=== PATIENT | female | born 1965 | race African-American/Black ===

== ENCOUNTER 2016-05-04 15:35 | Inpatient (IN) | payer MEDICAID, OTHER ==
[~2016-05-04] VITALS: Ht 157.5 cm; Wt 119.7 kg
[~2016-05-04 15:35] MED LIST: ALBU.5I INH; ASPI325T PO; CLON.2 PO; CYCL-36 PO; HYDR-3533 PO; LISI40TA PO; NAPR220T95 PO; TAB-TAB PO
[2016-05-04 15:37] VITALS: BP 267/147; PULSE 117; RESP 24; TEMP 98.2; O2SAT 97
[2016-05-04] MEDS ORDERED: cloNIDine HCL 0.1 MG TAB PO ONE (16:15)
[2016-05-04] MEDS ORDERED: SODIUM CHLORIDE 0.9% FLUSH 5 ML FLUSH IVF PRN (16:15)
[2016-05-04] MEDS ORDERED: NITROGLYCERIN 2% OINT 1 GM PACKET TOP ONE (16:15)
[2016-05-04] MEDS ORDERED: ASPIRIN 325 MG TAB PO ONE (16:15)
[2016-05-04] MEDS ORDERED: ALBU6.7H INH (16:18)
[2016-05-04] MEDS ORDERED: ASPI81CH CHEW (16:18)
[2016-05-04] MEDS ORDERED: LISI40TA PO (16:18)
[2016-05-04] MEDS ORDERED: HYDR-3533 PO (16:18)
[2016-05-04] MEDS ORDERED: NAPR220T95 PO (16:18)
[2016-05-04] MEDS ORDERED: CLON0.2T PO (16:18)
--- NOTE | 2016-05-04 16:27 | PD ---
HPI Chief Complaint: Respiratory Symptoms Time Seen by Provider: 16:05 Travel History International Travel<30 days: No Contact w/Intl Traveler<30days: No Traveled to known affect area: No History of Present Illness HPI 51-year-old female presents with chest tightness that is been intermittent over the past couple weeks with over the past couple of days intermittent cough and congestion. She states she has been taking her blood pressure medication like she should but she is due to take her clonidine here at 5 PM. She denies taking an aspirin yet today. She denies prior cardiac testing. She denies other concurrent complaints other than chronic shoulder pain. She states that she is working on setting up a better primary care physician for management of her blood pressure but she still takes clonidine and lisinopril. Quality is tightness. Severity is moderate. She denies specific modifying factors other than movement. PFSH Past Medical History Asthma: Yes Cancer: No Cardiac Catheterization: No Cardiovascular Problems: Yes High Cholesterol: No Diabetes: No Diminished Hearing: No Endocrine: No Genitourinary: No Hypertension: Yes Immune Disorder: No Musculoskeletal: Yes (CBP) Neurologic: No Psychiatric: No Reproductive: No Respiratory: Yes (ASTHMA) Tetanus Vaccination: < 5 Years ?: Unknown : 4 Para: 3 Miscarriage: 1 Past Surgical History Abdominal Surgery: Yes (LYSIS OF ADHESIONS) Section: Yes (X3) Gynecologic Surgery: Yes (C-Cesereans) Social History Alcohol Use: Yes (occ) Tobacco Use: No (QUIT APR 2014) Substance Use: No Allergies-Medications (Allergen,Severity, Reaction): Coded Allergies: No Known Allergies (Verified , 05/04/16) Reported Meds & Prescriptions Reported Meds & Active Scripts Active Reported Aleve (Naproxen Sodium) 220 Mg Tab 220 Mg PO BID PRN Lisinopril 40 Mg Tab 40 Mg PO DAILY Lortab (Hydrocodone-Acetaminophen) 5-325 Mg Tab 1 Tab PO Q6H PRN Aspirin 81 Mg Chew 81 Mg CHEW DAILY Proventil Hfa 6.7 GM Inh (Albuterol Sulfate) 90 Mcg/Act Aer 2 Puff INH Q4-6H PRN Clonidine (Clonidine HCl) 0.2 Mg Tab 0.2 Mg PO BID Review of Systems Except as stated in HPI: all other systems reviewed are Neg Physical Exam Narrative GENERAL: Well-nourished, well-developed patient. SKIN: Warm and dry. HEAD: Normocephalic and atraumatic. EYES: No injection or drainage. ENT: No nasal drainage noted. NECK: Supple, trachea midline. CARDIOVASCULAR: Regular rate and rhythm RESPIRATORY: Breath sounds equal bilaterally. No accessory muscle use. GASTROINTESTINAL: Abdomen soft, non-tender, nondistended. EXTREMITIES: No edema. NEUROLOGICAL: Awake and alert. Motor and sensory grossly within normal limits. Normal speech. Data Data Last Documented VS Vital Signs Date Time Temp Pulse Resp B/P Pulse Ox O2 Delivery O2 Flow Rate FiO2 05/04/16 16:46 98 05/04/16 16:39 107 22 197/162 05/04/16 15:37 98.2 Room Air Orders Electrocardiogram (05/04/16 16:14) B-Type Natriuretic Peptide (05/04/16 16:14) Ckmb (Isoenzyme) Profile (05/04/16 16:14) Complete Blood Count With Diff (05/04/16 16:14) Comprehensive Metabolic Panel (05/04/16 16:14) Magnesium (Mg) (05/04/16 16:14) Prothrombin Time / Inr (Pt) (05/04/16 16:14) Act Partial Throm Time (Ptt) (05/04/16 16:14) Troponin I (05/04/16 16:14) Chest, Single Ap (05/04/16 16:14) Ecg Monitoring (05/04/16 16:14) Bilateral Bp Monitoring (05/04/16 16:14) Iv Access Insert/Monitor (05/04/16 16:14) Oximetry (05/04/16 16:14) Aspirin (Aspirin) (05/04/16 16:15) Nitroglycerin 2% Oint (Nitroglycerin 2% (05/04/16 16:15) Sodium Chloride 0.9% Flush (Ns Flush) (05/04/16 16:15) Clonidine (Catapres) (05/04/16 16:15) Influenzae A/B Antigen (05/04/16 16:14) Ed Urine Pregnancytest Poc (05/04/16 17:02) Enalaprilat Inj (Vasotec Inj) (05/04/16 18:00) Admit Order (Ed Use Only) (05/04/16 18:21) Labs Laboratory Tests Test 05/04/16 16:40 White Blood Count 5.7 TH/MM3 Red Blood Count 4.52 MIL/MM3 Hemoglobin 10.4 GM/DL Hematocrit 32.7 % Mean Corpuscular Volume 72.3 FL Mean Corpuscular Hemoglobin 23.1 PG Mean Corpuscular Hemoglobin 31.9 % Concent Red Cell Distribution Width 23.4 % Platelet Count 270 TH/MM3 Mean Platelet Volume 8.6 FL Neutrophils (%) (Auto) 67.3 % Lymphocytes (%) (Auto) 22.2 % Monocytes (%) (Auto) 8.3 % Eosinophils (%) (Auto) 1.5 % Basophils (%) (Auto) 0.7 % Neutrophils # (Auto) 3.9 TH/MM3 Lymphocytes # (Auto) 1.3 TH/MM3 Monocytes # (Auto) 0.5 TH/MM3 Eosinophils # (Auto) 0.1 TH/MM3 Basophils # (Auto) 0.0 TH/MM3 CBC Comment AUTO DIFF Differential Comment AUTO DIFF CONFIRMED Platelet Estimate NORMAL Platelet Morphology Comment NORMAL Prothrombin Time 10.6 SEC Prothromb Time International 1.0 RATIO Ratio Activated Partial 25.7 SEC Thromboplast Time Sodium Level 142 MEQ/L Potassium Level 3.9 MEQ/L Chloride Level 110 MEQ/L Carbon Dioxide Level 24.6 MEQ/L Anion Gap 7 MEQ/L Blood Urea Nitrogen 18 MG/DL Creatinine 1.23 MG/DL Estimat Glomerular Filtration 56 ML/MIN Rate Random Glucose 92 MG/DL Calcium Level 8.5 MG/DL Magnesium Level 2.2 MG/DL Total Bilirubin 0.3 MG/DL Aspartate Amino Transf 14 U/L (AST/SGOT) Alanine Aminotransferase 15 U/L (ALT/SGPT) Alkaline Phosphatase 86 U/L Total Creatine Kinase 86 U/L Troponin I 0.02 NG/ML B-Type Natriuretic Peptide 456 PG/ML Total Protein 7.6 GM/DL Albumin 3.4 GM/DL [facility] Medical Decision Making Medical Screen Exam Complete: Yes Emergency Medical Condition: Yes Medical Record Reviewed: Yes (past history confirmed) Interpretation(s) CBC & BMP Diagram 05/04/16 16:40 Last 24 hours Impressions Chest X-Ray 05/04/16 8868 Signed Impressions: Service Date/Time: Wednesday, May 04, 2016 16:30 - CONCLUSION: No acute disease. No significant change has occurred. Stable left ventricular cardiomegaly Armando Tobin MD EKG without STEMI criteria Differential Diagnosis Hypertensive urgency, musculoskeletal, atypical cardiac, pneumonia, URI.... Narrative Course Will check blood work, chest x-ray, EKG and dose with aspirin, clonidine, nitroglycerin and reevaluate 201/120 at 1750 on recheck, will dose with vasotec and recheck as also takes lisinopril at home 185/98 on recheck before vasotec so will hold and give if goes up again, agrees to admit Physician Communication Physician Communication dr thurston agrees to admit, given patient not needing iv antihypertensive will keep at observation on cardiac tele Diagnosis Primary Impression: Hypertensive urgency Additional Impression: Chest pain Qualified Code: R07.9 - Chest pain, unspecified type Admitting Information Admitting Physician Requests: Observation Christin Hurley MD May 04, 2016 16:27
[2016-05-04 16:39] VITALS: BP 197/162; PULSE 107; RESP 22; O2SAT 99
[2016-05-04 16:46] VITALS: O2SAT 98
--- NOTE | 2016-05-04 16:54 | RADRPT ---
EXAM DATE/TIME: 05/04/2016 16:30 [facility] COMPARISON: CHEST SINGLE AP, June 13, 2014, 11:31. INDICATIONS : Patient is short of breath and chest pain for two weeks. MEDICAL HISTORY : None. SURGICAL HISTORY : None. ENCOUNTER: Initial ACUITY: 1 day PAIN SCORE: 8/10 LOCATION: Bilateral chest FINDINGS: A single view of the chest demonstrates the lungs to be symmetrically aerated without evidence of mas s, infiltrate or effusion. The cardiomediastinal contours reveal stable left ventricular cardiomegal y. Osseous structures are intact. CONCLUSION: No acute disease. No significant change has occurred. Stable left ventricular cardiomegaly Aramndo Tobin MD on May 04, 2016 at 16:51 Board Certified Radiologist. This report was verified electronically.
[2016-05-04 17:16] LABS: AUTOMATED NEUTROPHIL # 3.9 TH/MM3 (1.8-7.7); BASOPHIL % 0.7 % (0.0-2.0); EOSINOPHIL # 0.1 TH/MM3 (0-0.4); EOSINOPHIL % 1.5 % (0.0-4.0); HEMATOCRIT 32.7 % (35.0-46.0); LYMPH % 22.2 % (9.0-44.0); LYMPHOCYTE # 1.3 TH/MM3 (1.0-4.8); MEAN CELL VOLUME 72.3 FL (80.0-100.0); MEAN CORPUSCULAR HEMOGLOBIN 23.1 PG (27.0-34.0); MEAN CORPUSCULAR HGB CONC 31.9 % (32.0-36.0); MONO % 8.3 % (0.0-8.0); NEUT % 67.3 % (16.0-70.0); PLATELET COUNT 270 TH/MM3 (150-450); RED BLOOD COUNT 4.52 MIL/MM3 (4.00-5.30); RED CELL DISTRIBUTION WIDTH 23.4 % (11.6-17.2); WHITE BLOOD COUNT 5.7 TH/MM3 (4.0-11.0)
[2016-05-04 17:22] LABS: HEMO FLAGS AUTO DIFF
[2016-05-04 17:29] LABS: APTT (PATIENT) 25.7 SEC (24.3-30.1); PROTHROMBIN TIME - PATIENT 10.6 SEC (9.8-11.6)
[2016-05-04 17:38] LABS: ANION GAP 7 MEQ/L (5-15); AST (GOT) 14 U/L (15-37); BICARBONATE 24.6 MEQ/L (21.0-32.0); BLOOD UREA NITROGEN 18 MG/DL (7-18); CHLORIDE 110 MEQ/L (98-107); GLOMERULAR FILTRATION RATE 56 ML/MIN (>89); MAGNESIUM 2.2 MG/DL (1.5-2.5); POTASSIUM 3.9 MEQ/L (3.5-5.1); SODIUM (NA) 142 MEQ/L (136-145)
[2016-05-04 17:42] LABS: ALKALINE PHOSPHATASE 86 U/L (45-117); ALT (GPT) 15 U/L (10-53); CREATINE KINASE 86 U/L (26-192); TOTAL BILIRUBIN ADULT 0.3 MG/DL (0.2-1.0)
[2016-05-04 17:58] LABS: PLATELET ESTIMATE SMEAR NORMAL (NORMAL); PLATELET MORPHOLOGY NORMAL (NORMAL); SCAN/DIFF AUTO DIFF CONFIRMED
[2016-05-04] MEDS ORDERED: ENALAPRILAT 1.25 MG/ML VIAL IV PUSH ONE (18:00)
[2016-05-04 18:26] VITALS: BP 172/85; PULSE 99; RESP 22; O2SAT 97
[2016-05-04] MEDS ORDERED: SODIUM CHLORIDE 0.9% FLUSH 5 ML FLUSH FLUSH PRN (19:00)
[2016-05-04 19:15] VITALS: BP_SYST 181; BP_SYST 191; BP_DIAS 101; BP_DIAS 96; PULSE 96; RESP 20; O2SAT 97
[2016-05-04] MEDS ORDERED: cloNIDine HCL 0.2 MG TAB PO SCH (21:00)
[2016-05-04] MEDS: SODIUM CHLORIDE 0.9% FLUSH 5 ML FLUSH FLUSH SCH (21:00)
[2016-05-04 21:04] VITALS: BP 155/89; PULSE 100; RESP 20; O2SAT 97
--- NOTE | 2016-05-04 23:07 | HHI.HP ---
[facility] Primary Care Physician Saeed Patterson MD Admission Diagnosis hypertensive urgency, chest pain Diagnoses: (1) Hypertensive urgency (2) Chest pain (3) Hypochromic microcytic anemia (4) Cephalgia (5) Acute renal insufficiency (6) Menstrual changes Chief Complaint: headache, worsening of chronic left shoulder pain, and sinus congestion worsening shortness of breath Travel History International Travel<30 Days: No Contact w/Intl Traveler <30 Da: No Traveled to Known Affected Are: No History of Present Illness Ms. Wilson is a 51-year-old female with a past medical history of hypertension with medication noncompliance, asthma, and obesity who presented to the emergency room 05/04/2016 for evaluation of chest tightness over the past couple of weeks with some intermittent cough and congestion for a few days. Blood pressure was 267/147 on admission. The patient has a history of medication noncompliance. BNP was mildly elevated at 456 and chest x-ray showed no acute disease with stable left ventricular cardiomegaly. Acute renal insufficiency is noted with BUN at upper limit of normal at 18, creatinine elevated at 1.23 and estimated GFR low at 56 which is somewhat worsened when compared to prior labs during previous visits. CBC is consistent with chronic anemia from prior visits. She is admitted for observation. She is seen in the ER. She states she came in because of headache, worsening of chronic left shoulder pain, and sinus congestion. She also complains of chest tightness, like bricks sitting on it - worse with exertion. She also reports that she has been having worsening shortness of breath. She complains of severe fatigue, PICA with craving ice, muscles that are aching all over, chronic left shoulder pain, and nipple pain. No menses since February; previously had heavy periods with saturation of 5 Maxi pads daily. Review of Systems Constitutional: COMPLAINS OF: Fatigue, Change in appetite (PICA - craves ice) Respiratory: COMPLAINS OF: Cough, Shortness of breath Cardiovascular: COMPLAINS OF: Chest pain (tightness, like bricks sitting on it - worse with exertion), Orthopnea, DENIES: Lower Extremity Edema Gastrointestinal: DENIES: Black stools, Bloody stools Genitourinary: COMPLAINS OF: Abnormal vaginal bleeding (no menses since February 2015, heavy periods prior to this - 5 pads per day), Urinary frequency , DENIES: Dysuria Musculoskeletal: COMPLAINS OF: Joint pain, Muscle aches ("aches all over") Integumentary: DENIES: Breast masses, Breast skin changes, Nipple discharge (c/ o nipple pain) Neurologic: COMPLAINS OF: Headache, DENIES: Seizures Other 10 point system reviewed and other than what is mentioned above and in history of present illness, systems are negative Past Family Social History Past Medical History Hypertension with medication noncompliance Asthma Obesity Chronic back pain Left frozen shoulder x 1 year, see ortho on [facility] in [place] . Past Surgical History 3 C-sections Laparoscopic lysis adhesions . Reported Medications Clonidine Flexeril Lortab . Allergies: Coded Allergies: No Known Allergies (Verified , 05/04/16) Active Ordered Medications Current Medications Aspirin (Aspirin) 325 mg ONCE ONCE PO Last administered on 05/04/16 16:38; Start 05/04/16 at 16:15; Stop 05/04/16 at 16:17; Status DC Nitroglycerin (Nitroglycerin 2% Oint) 1 inch ONCE ONCE TOP Last administered on 05/04/16 16:39; Start 05/04/16 at 16:15; Stop 05/04/16 at 16:17; Status DC IV Flush (NS Flush) 2 ml UNSCH PRN IVF FLUSH AFTER USING IV ACCESS; Start 05/04 at 16:15; Stop 05/04/16 at 20:32; Status DC Clonidine (Catapres) 0.2 mg ONCE ONCE PO Last administered on 05/04/16 16:39 ; Start 05/04/16 at 16:15; Stop 05/04/16 at 16:17; Status DC Enalaprilat (Vasotec Inj) 1.25 mg ONCE ONCE IV PUSH ; Start 05/04/16 at 18:00 ; Stop 05/04/16 at 18:01; Status DC Clonidine (Catapres) 0.2 mg BID PO ; Start 05/04/16 at 21:00 Lisinopril (Prinivil) 40 mg DAILY PO ; Start 1/26/17 at 09:00 IV Flush (NS Flush) 2 ml UNSCH PRN FLUSH FLUSH AFTER USING IV ACCESS; Start at 19:00 IV Flush (NS Flush) 2 ml BID FLUSH ; Start 05/04/16 at 21:00 Enalaprilat (Vasotec Inj) 1.25 mg Q6H PRN IV SEE LABEL COMMENTS; Start at 19:00 Albuterol/ Ipratropium (Duoneb Neb) 1 ampule Q4HR NEB PRN NEB wheezing; Start 05/04/16 at 21:45 . Family History Denies family history of heart disease Diabetes and hypertension runs in the family . Social History Tobacco: Quit smoking April 2014, smoked for years Alcohol: Occasional - twice weekly; about four beers or two cups of hard liquor Illicit Drugs: Denied Performs own ADLs, able to drive, get own groceries . Physical Exam Vital Signs Vital Signs Date Time Temp Pulse Resp B/P Pulse Ox O2 Delivery O2 Flow Rate FiO2 05/04/16 21:04 100 20 155/89 97 Room Air 05/04/16 19:15 96 20 181/96 97 05/04/16 19:15 Room Air 05/04/16 18:26 99 22 172/85 97 05/04/16 16:46 98 05/04/16 16:39 107 22 197/162 99 05/04/16 15:37 98.2 117 24 267/147 97 Room Air Physical Exam GENERAL: This is a well-nourished, well-developed patient, in no apparent distress. SKIN: No rashes, ecchymoses or lesions. Cool and dry. HEAD: Atraumatic. Normocephalic. EYES: No scleral icterus. No injection or drainage. ENT: Nose without bleeding, purulent drainage. NECK: Trachea midline. No JVD or lymphadenopathy. BREASTS: No nipple discharge noted, no masses palpated CARDIOVASCULAR: Regular rate and rhythm without murmurs, gallops, or rubs. RESPIRATORY: Clear to auscultation. Breath sounds diminished but equal bilaterally. No wheezes, rales, or rhonchi. GASTROINTESTINAL: Abdomen soft, non-tender, nondistended. No guarding. MUSCULOSKELETAL: Extremities without clubbing, cyanosis, or edema. No calf tenderness. NEUROLOGICAL: Awake and alert. Motor and sensory grossly within normal limits. Normal speech. . Laboratory Laboratory Tests Test 05/04/16 16:40 White Blood Count 5.7 Red Blood Count 4.52 Hemoglobin 10.4 Hematocrit 32.7 Mean Corpuscular Volume 72.3 Mean Corpuscular Hemoglobin 23.1 Mean Corpuscular Hemoglobin 31.9 Concent Red Cell Distribution Width 23.4 Platelet Count 270 Mean Platelet Volume 8.6 Neutrophils (%) (Auto) 67.3 Lymphocytes (%) (Auto) 22.2 Monocytes (%) (Auto) 8.3 Eosinophils (%) (Auto) 1.5 Basophils (%) (Auto) 0.7 Neutrophils # (Auto) 3.9 Lymphocytes # (Auto) 1.3 Monocytes # (Auto) 0.5 Eosinophils # (Auto) 0.1 Basophils # (Auto) 0.0 CBC Comment AUTO DIFF Differential Comment AUTO DIFF CONFIRMED Platelet Estimate NORMAL Platelet Morphology Comment NORMAL Prothrombin Time 10.6 Prothromb Time International 1.0 Ratio Activated Partial 25.7 Thromboplast Time Sodium Level 142 Potassium Level 3.9 Chloride Level 110 Carbon Dioxide Level 24.6 Anion Gap 7 Blood Urea Nitrogen 18 Creatinine 1.23 Estimat Glomerular Filtration 56 Rate Random Glucose 92 Calcium Level 8.5 Magnesium Level 2.2 Total Bilirubin 0.3 Aspartate Amino Transf 14 (AST/SGOT) Alanine Aminotransferase 15 (ALT/SGPT) Alkaline Phosphatase 86 Total Creatine Kinase 86 Troponin I 0.02 B-Type Natriuretic Peptide 456 Total Protein 7.6 Albumin 3.4 Date/Time Procedure Status Source Growth 05/04/16 16:40 Influenza Types A,B Antigen (SURYA) - Final Complete Nasal Aspirate NEGATIVE FOR FLU A AND B ANTIGEN.... Result Diagram: 05/04/16 1640 05/04/16 1640 Imaging Last Impressions Chest X-Ray 05/04/16 1614 Signed Impressions: Service Date/Time: Wednesday, May 04, 2016 16:30 - CONCLUSION: No acute disease. No significant change has occurred. Stable left ventricular cardiomegaly Armando Tobin MD . Assessment and Plan Problem List: (1) Hypertensive urgency ICD Code: I16.0 Status: Acute (2) Chest pain ICD Code: R07.9 Status: Acute (3) Cephalgia ICD Code: R51 Status: Acute (4) Acute renal insufficiency ICD Code: N28.9 Status: Acute (5) Hypochromic microcytic anemia ICD Code: D50.9 Status: Chronic (6) Menstrual changes ICD Code: N92.6 Status: Acute Assessment and Plan Ms. Wilson is a 51-year-old female with a past medical history of hypertension with medication noncompliance, asthma, and obesity who presented to the emergency room 05/04/2016 for evaluation of chest tightness over the past couple of weeks with some intermittent cough and congestion for a few days. Blood pressure was 267/147 on admission. The patient has a history of medication noncompliance. BNP was mildly elevated at 456 and chest x-ray showed no acute disease with stable left ventricular cardiomegaly. Acute renal insufficiency is noted with BUN at upper limit of normal at 18, creatinine elevated at 1.23 and estimated GFR low at 56 which is somewhat worsened when compared to prior labs during previous visits. CBC is consistent with chronic anemia from prior visits. She is admitted for observation. Hypertensive urgency - Blood pressure 267/147 on admission and is currently 155/89 after treatment - Restart home anti-hypertensive medications: Lisinopril and clonidine - Vasotec 1.25 mg IV every 6 hours when necessary blood pressure greater than or equal to 170/100 - Monitor blood pressure readings and adjust medications as indicated - advised weight loss and alcohol Atypical chest pain - probably secondary to hypertensive urgency may have mild component of CHF - BNP mildly elevated at 456 - Chest x-ray with no acute disease, stable left ventricular cardiomegaly - Serial cardiac enzymes to rule out ACS - Strict intake and output every shift - Cardiac telemetry to monitor for arrhythmias - Vital signs every 4 hours Cephalgia - check CT head Acute renal insufficiency - BUN at upper limit of normal at 18, creatinine elevated at 1.23 and estimated GFR low at 56 - renal function is somewhat worse when compared to prior labs from previous visits - recheck BMP in a.m. and follow trends - avoid nephrotoxins Chronic hypochromic microcytic anemia with PICA - Hemoglobin 10.4, hematocrit 32.2- stable compared to prior labs from previous visits - Recheck CBC in a.m. and follow trends - check iron studies - will need to follow up with PCP for colonoscopy as an outpatient Heavy menses in past with no menstruation since February - check pelvic ultrasound for pelvic mass - check serum HCG - r/o Asthma - Duonebulizers q4h PRN wheezing - Singulair 10 mg daily - consult COPD educator - consider adding preventive inhaler prior to discharge DVT prophylaxis Written by Shira Romero, acting as scribe for Dr. Carr on 05/04/16 at 23:07. The documentation accurately reflects the work performed [id number] by me on at 2307 In addition, patient blood pressure continued to be elevated during the night. She was also having significant pain in her left shoulder which she suffers from frozen shoulder/adhesive capsulitis. She stated she was planned for surgery for this. This pain has been chronic as well. I suspect the patient's pain is not well-controlled. I have educated patient's nurse on this. Pain medicine both dose and frequency have also been increased. We have used clonidine by mouth as the when necessary through the night for her elevated BP since we do not want to lower her blood pressure too fast either. However mainly the blood pressure is also coming from pain. Therefore no IV medications have been added yet such as hydralazine. She was also tachycardic. . Discussed Condition With Patient and ER physician Problem Qualifiers (1) Chest pain: Qualified Code: R07.9 - Chest pain, unspecified type Shira Romero May 04, 2016 23:07 Kevin Carr MD May 05, 2016 08:01
[2016-05-04] MEDS ORDERED: NITROGLYCERIN 0.4 MG SL 25 TABS/BTL SL PRN (23:30)
[2016-05-05] VITALS (17 sets, daily range): BP systolic 147–202; BP diastolic 90–123; PULSE 75–112; RESP 16–22; O2SAT 98–100
[2016-05-05 00:01] LABS: BETA HCG QUANT LESS THAN 1 MIU/ML (0-5)
--- NOTE | 2016-05-05 00:06 | RADRPT ---
EXAM DATE/TIME: 05/04/2016 23:58 [facility] COMPARISON: No previous studies available for comparison. INDICATIONS : Cephalgia. RADIATION DOSE: 52.58 CTDIvol (mGy) MEDICAL HISTORY : Hypertension. SURGICAL HISTORY : None. ENCOUNTER: Initial ACUITY: 1 day PAIN SCALE: 8/10 LOCATION: cranial TECHNIQUE: Multiple contiguous axial images were obtained of the head. Using automated exposure control and adj ustment of the mA and/or kV according to patient size, radiation dose was kept as low as reasonably a chievable to obtain optimal diagnostic quality images. FINDINGS: CEREBRUM: The ventricles are normal for age. No evidence of midline shift, mass lesion, hemorrhage or acute in farction. No extra-axial fluid collections are seen. POSTERIOR FOSSA: The cerebellum and brainstem are intact. The 4th ventricle is midline. The cerebellopontine angle i s unremarkable. EXTRACRANIAL: The visualized portion of the orbits is intact. SKULL: The calvaria is intact. No evidence of skull fracture. CONCLUSION: Normal examination for a patient of this age. Gold Tabares MD on May 05, 2016 at 0:04 Board Certified Radiologist. This report was verified electronically.
[2016-05-05] MEDS ORDERED: cloNIDine HCL 0.1 MG TAB PO ONE (00:45)
[2016-05-05] MEDS: HYDROmorphone HCL PF 1 MG/ML VIAL IV PUSH PRN ×2 (00:54→04:51)
[2016-05-05 01:50] LABS: TRANSFERRIN IRON PROFILE 313 MG/DL (200-360)
[2016-05-05] MEDS: RESP: ALBUTEROL 2.5 MG/IPRATROPIUM 0.5 MG NEB (PRN) NEB ×2 (03:08→19:56)
[2016-05-05 04:50] LABS: BASOPHIL # 0.1 TH/MM3 (0-0.2); BASOPHIL % 1.5 % (0.0-2.0); EOSINOPHIL # 0.2 TH/MM3 (0-0.4); EOSINOPHIL % 3.9 % (0.0-4.0); HEMATOCRIT 31.4 % (35.0-46.0); LYMPH % 25.3 % (9.0-44.0); LYMPHOCYTE # 1.3 TH/MM3 (1.0-4.8); MEAN CELL VOLUME 73.7 FL (80.0-100.0); MEAN CORPUSCULAR HEMOGLOBIN 23.2 PG (27.0-34.0); MEAN CORPUSCULAR HGB CONC 31.6 % (32.0-36.0); MONO % 11.1 % (0.0-8.0); NEUT % 58.2 % (16.0-70.0); PLATELET COUNT 251 TH/MM3 (150-450); RED BLOOD COUNT 4.26 MIL/MM3 (4.00-5.30); RED CELL DISTRIBUTION WIDTH 23.6 % (11.6-17.2); WHITE BLOOD COUNT 5.1 TH/MM3 (4.0-11.0)
[2016-05-05 04:55] LABS: HEMO FLAGS AUTO DIFF
[2016-05-05 05:22] LABS: BICARBONATE 25.2 MEQ/L (21.0-32.0)
[2016-05-05] MEDS ORDERED: cloNIDine HCL 0.1 MG TAB PO PRN (05:30)
[2016-05-05] MEDS: ENALAPRILAT 1.25 MG/ML VIAL IV PRN ×2 (06:38→21:20)
[2016-05-05 07:01] LABS: KERATOCYTES OCC (NORMAL); OVALOCYTES 1+ (NORMAL); PLATELET ESTIMATE SMEAR NORMAL (NORMAL); PLATELET MORPHOLOGY NORMAL (NORMAL); SCAN/DIFF AUTO DIFF CONFIRMED
[2016-05-05] MEDS ORDERED: ACETAMINOPHEN 325 MG TAB PO PRN (08:15)
--- NOTE | 2016-05-05 08:19 | HHI.PR ---
Subjective Remarks Follow up for accelerated hypertension. Agent is currently doing well. Denies any chest pain, shortness of breath, fever or chills. Objective Vitals Vital Signs Date Time Temp Pulse Resp B/P Pulse Ox O2 Delivery O2 Flow Rate FiO2 05/05/16 07:12 188/123 05/05/16 06:39 109 22 202/120 100 Room Air 05/05/16 05:25 104 20 202/115 100 Room Air 05/05/16 04:51 98 20 175/113 98 Room Air 05/05/16 02:19 93 18 195/106 98 Room Air 05/05/16 00:47 100 18 197/111 100 Room Air 05/04/16 21:04 100 20 155/89 97 Room Air 05/04/16 19:15 96 20 181/96 97 05/04/16 19:15 Room Air 05/04/16 18:26 99 22 172/85 97 05/04/16 16:46 98 05/04/16 16:39 107 22 197/162 99 05/04/16 15:37 98.2 117 24 267/147 97 Room Air Result Diagram: 05/05/16 0435 05/05/16 0435 Imaging Last Impressions Pelvis Ultrasound 05/05/16 0000 Signed Impressions: Service Date/Time: April 09:04 - CONCLUSION: The uterus is enlarged by multiple areas of mixed echogenicity within the myometrium consistent with degenerative fibroids. This pattern is similar to that seen on prior CT. Normal evaluation of the ovaries. The endometrium appears thickened within the region of the uterine fundus. Given the patient's history of LMP of February this area may require sampling.. Vi Aguayo MD Chest X-Ray 05/04/16 1614 Signed Impressions: Service Date/Time: Wednesday, May 04, 2016 16:30 - CONCLUSION: No acute disease. No significant change has occurred. Stable left ventricular cardiomegaly Armando Tobin MD Head CT 05/04/16 0000 Signed Impressions: Service Date/Time: Wednesday, May 04, 2016 23:58 - CONCLUSION: Normal examination for a patient of this age. Gold Tabares MD Objective Remarks GENERAL: Alert, oriented 3, NAD. Morbidly obese. SKIN: Warm and dry. HEAD: Normocephalic. EYES: No scleral icterus. No injection or drainage. NECK: Supple, trachea midline. No JVD or lymphadenopathy. CARDIOVASCULAR: Regular rate and rhythm without murmurs, gallops, or rubs. RESPIRATORY: Breath sounds equal bilaterally. No accessory muscle use. GASTROINTESTINAL: Abdomen soft, non-tender, nondistended. MUSCULOSKELETAL: No cyanosis, or edema. BACK: Nontender without obvious deformity. No CVA tenderness. Procedures None A/P Problem List: (1) Accelerated hypertension ICD Code: I10 Status: Acute (2) Chest pain ICD Code: R07.9 Status: Acute (3) Acute renal insufficiency ICD Code: N28.9 Status: Acute (4) Hypochromic microcytic anemia ICD Code: D50.9 Status: Chronic Assessment and Plan Ms. Wilson is a 59-year-old morbidly obese female who presented to the emergency department with accelerated hypertension, headache, atypical chest pain. - Accelerated hypertension - Patient was on clonidine at home. We'll wean her off of clonidine. - Continue lisinopril 40 mg by mouth daily, nifedipine 30 mg by mouth daily, metoprolol 12.5 mg by mouth every 12 hours, hydrochlorothiazide 25 mg by mouth daily. - Bilateral shoulder pain - Continue Flexeril 10 mg every 8 hours when necessary, [place] 7.5 mg/325 mg every 6 hours when necessary. 0.5mg Dilaudid IV for breakthrough. - IV hydralazine 10 mg every 6 hours when necessary for blood pressure over 170/100. - Morbid obesity - possibly contributing to sleep apnea, hypertension. - Consider outpatient sleep study. Full code. SCDs. Problem Qualifiers (1) Chest pain: Qualified Code: R07.9 - Chest pain, unspecified type Aydin Christianson DO May 05, 2016 08:19
[2016-05-05] MEDS ORDERED: HYDROmorphone HCL PF 1 MG/ML VIAL IV PUSH PRN (08:45)
[2016-05-05] MEDS: cloNIDine HCL 0.1 MG TAB PO SCH ×2 (08:50→14:37)
[2016-05-05] MEDS ORDERED: amLODIPine BESYLATE 5 MG TAB PO SCH (09:00)
[2016-05-05] MEDS: SODIUM CHLORIDE 0.9% FLUSH 5 ML FLUSH FLUSH SCH ×2 (09:29→19:46)
[2016-05-05] MEDS: LISINOPRIL 20 MG TAB PO SCH (09:32)
[2016-05-05] MEDS ORDERED: PILL SPLITTER OTHER PRN (11:15)
[2016-05-05] MEDS: NIFEdipine 30 MG SUSTAINED RELEASE TAB PO SCH (12:17)
--- NOTE | 2016-05-05 12:24 | EC ---
Study Study Date:05/05/2016 STUDY CONCLUSIONS SUMMARY - Left ventricle: The cavity size was moderately dilated. Wall thickness was increased in a pattern of moderate LVH. Systolic function was severely reduced by visual assessment. The estimated ejection fraction was in the range of 30% to 35%. Mild diffuse hypokinesis. Doppler parameters are consistent with abnormal left ventricular relaxation (grade 1 diastolic dysfunction). - Aortic valve: Mild to moderate regurgitation. - Aorta: The possibility of dissection is not excluded. Aortic root dimension: 34mm (ED, M-mode). - Aortic root: The aortic root was poorly visualized and normal in size. - Mitral valve: Mild to moderate regurgitation. - Left atrium: The atrium was mildly dilated. - Tricuspid valve: Mild regurgitation. - Pulmonary arteries: PA peak pressure: 31mm Hg (S). - Pericardium, extracardiac: A trivial pericardial effusion was identified circumferential to the heart. If LV function is below 40, please consider prescribing an ACEI or ARB or document rationale for non-use. PROCEDURE DATA STUDY STATUS: Elective. Procedure: Transthoracic echocardiography. Image quality was good. Scanning was performed from the parasternal, apical, and subcostal acoustic windows. Study completion: The patient tolerated the procedure well. Transthoracic echocardiography. M-mode, complete 2D, complete spectral Doppler, and color Doppler. Patient status: Inpatient. CARDIAC ANATOMY LEFT VENTRICLE: The cavity size was moderately dilated. Wall thickness was increased in a pattern of moderate LVH. Systolic function was severely reduced by visual assessment. The estimated ejection fraction was in the range of 30% to 35%. Mild diffuse hypokinesis. Doppler parameters are consistent with abnormal left ventricular relaxation (grade 1 diastolic dysfunction). AORTIC VALVE: Trileaflet; normal thickness leaflets. Doppler: Transvalvular velocity was within the normal range. There was no stenosis. Mild to moderate regurgitation. Aorta: - The possibility of dissection is not excluded. Aortic root: The aortic root was poorly visualized and normal in size. MITRAL VALVE: Structurally normal valve. Doppler: Transvalvular velocity was within the normal range. There was no evidence for stenosis. Mild to moderate regurgitation. LEFT ATRIUM: The atrium was mildly dilated. RIGHT VENTRICLE: The cavity size was normal. Wall thickness was normal. PULMONIC VALVE: Doppler: Transvalvular velocity was within the normal range. There was no evidence for stenosis. No regurgitation. TRICUSPID VALVE: Structurally normal valve. Doppler: Transvalvular velocity was within the normal range. Mild regurgitation. PULMONARY ARTERY: The main pulmonary artery was normal-sized. Systolic pressure was within the normal range. RIGHT ATRIUM: The atrium was normal in size. PERICARDIUM: A trivial pericardial effusion was identified circumferential to the heart. SYSTEMIC VEINS: Inferior vena cava: The vessel was normal in size. BASIC MEASUREMENTS ADULT Normal Left ventricle LV internal dimension, ED, chordal level, *54.1 mm 43-52 PLAX LV internal dimension, ES, chordal level, *42.1 mm 23-38 PLAX Fractional shortening, chordal level, PLAX *22 % >29 LV posterior wall thickness, ED 14.8 mm IVS/LVPW ratio, ED 0.98 <1.3 Ventricular septum Septal thickness, ED 14.5 mm Aortic valve Leaflet separation 20 mm 15-26 Left atrium Anterior-posterior dimension 31 mm BASIC MEASUREMENTS ADULT Normal Aortic valve Leaflet separation 20 mm 15-26 Aorta Root diameter, ED 34 mm 20-37 DOPPLER MEASUREMENTS ADULT Normal Main pulmonary artery Pressure, S *31 mm Hg =30 Mitral valve Maximal regurgitant velocity 476 cm/s Tricuspid valve Regurgitant peak velocity 239 cm/s Peak RV-RA gradient, S 23 mm Hg Maximal regurgitant velocity 239 cm/s Systemic veins Estimated CVP 5 mm Hg Right ventricle RV pressure, S *31 mm Hg <30 LEGEND: Mean values are shown as u=mean value. Asterisk (*) silver values outside specified normal range. Prepared and signed by Abdoul Tapia [id number]
--- NOTE | 2016-05-05 12:37 | MB ---
cc: ALYSSA PEACE DATE OF CONSULTATION: 05/05/2016 1965 REASON FOR CONSULTATION Atypical chest pain. HISTORY OF PRESENT ILLNESS 51-year-old female with past medical history significant for hypertension, noncompliant with medications, asthma and morbid obesity, who presented to the emergency department with complaints of headaches for the last couple of weeks, intermittent cough and congestion. She was found to have a blood pressure 267/ 147, for which she was admitted to the hospital for further management and evaluation. She also reports some chest pain occasional, sometimes at night, they do not happen everyday, not associated with exertion, PND, leg edema, palpitations or shortness of breath. REVIEW OF SYSTEMS Negative except for what is mentioned in the HPI. PAST MEDICAL HISTORY 1. Hypertension. 2. Asthma. 3. Obesity. 4. Chronic back pain. 5. Osteoarthritis in both shoulders. PAST SURGICAL HISTORY 1. . 2. Laparoscopic lysis of adhesions. MEDICATION 1. Albuterol. 2. Aspirin 81. 3. Clonidine 0.2 mg p.o. b.i.d. 4. Hydrocodone. 5. Acetaminophen tablets. 6. Lisinopril 40. 7. Naproxen sodium 220 mg p.o. p.r.n. ALLERGIES NO KNOWN DRUG ALLERGIES. FAMILY HISTORY Noncontributory. SOCIAL HISTORY She is a former smoker. She has occasional alcohol use and she denies illicit drug use. PHYSICAL EXAMINATION VITAL SIGNS: Temperature 97.6, respiratory rate 16, blood pressure on admission 267/147, this morning 194/118. GENERAL: She is awake, alert, oriented x3, in no acute distress. NECK: No JVD, no carotid bruits. HEART: Normal S1-S2. No murmurs, rubs or gallops. LUNGS: Clear to auscultation bilaterally. ABDOMEN: Obese, soft, nontender, nondistended. EXTREMITIES: No cyanosis or edema. Pulses throughout. LABORATORY CBC hemoglobin of 10, hematocrit of 30, platelet count of 251, INR 1. Chemistries sodium 141, potassium 4, BUN 18, creatinine 1.10, troponin's less than 0.02 x3. BNP 456. IMAGING STUDIES Chest x-ray shows no acute cardiopulmonary process. Head CT is normal. EKG Shows sinus tachycardia with nonspecific T-wave abnormalities. ASSESSMENT/PLAN 51-year-old female with above history and findings, presented with headaches in the setting of uncontrolled hypertension. She remains afebrile and hemodynamically stable. Currently she is headache free, as well as chest pain free. She mostly complains of headache, she does not complain of chest discomfort, if anything it is atypical chest pain. At this point I would optimize her blood pressure medications. I will discontinue her Clonidine given her poor noncompliance and the medication profile of rebound hypertension. Consider sleep study for sleep apnea/C-PAP machine. She reports having a lot of issues while sleeping which can be contributing to her high blood pressure. Get 2Dechocardiogram , if abnormal perform MPI. RECOMMENDATIONS 1. Aggressive medical management for hypertension and clonidine should be discontinued and she should be starting a better BP medication regimen for hypertension with beta-blockers, ELVIRA inhibitors, CCB and/or diuretics. 2. Consider sleep study for sleep apnea/CPAP trial. 3. Aggressive therapeutic lifestyle changes. 4. Symptomatic medication for the headache. 5. 2D echocardiogram today. If any significant wall motion abnormalities get an MPI Will follow with you Thank you for the opportunity to take part in the care of this patient. MD ARON Bone/FIDEL /11:03 AM /12:18 PM MTDSaeed
--- NOTE | 2016-05-05 13:25 | RADRPT ---
EXAM DATE/TIME: 05/05/2016 09:04 [facility] COMPARISON: CT ABDOMEN & PELVIS W CONTRAST, November 16, 2014, 1:52. INDICATIONS : Vaginal bleeding last week. MEDICAL HISTORY : Hypertension. Headache. Asthma. Dyspnea. Abnormal Uterine Bleeding. SURGICAL HISTORY : section. Lysis of Adhesions. ENCOUNTER: Initial ACUITY: 1 day PAIN SCORE: 2/10 LOCATION: Bilateral pelvis MEASUREMENTS: UTERUS: 13.9 x 6.8 x 8.7 cm ENDOMETRIAL STRIPE: 20 mm RIGHT OVARY: 2.3 x 2.0 x 2.1 cm LEFT OVARY: 3.8 x 2.9 x 4.8 cm FINDINGS: UTERUS: The uterus is enlarged with multiple areas of mixed echogenicity within the myometrium. These are see n both within the anterior right and left myometrium in a pattern similar to that seen on prior CT. G iven its appearance and stability these likely represent degenerative fibroids. The largest areas cleo ntified within the mid anterior myometrium measuring 4.3 x 4.7 x 3.4 cm. Similar smaller areas are al so noted adjacent to this region. RIGHT OVARY: Ovary contains no mass or significant cystic lesion. LEFT OVARY: Ovary contains no mass or significant cystic lesion. Corpus enhancing within the left ovary. MISCELLANEOUS: No free fluid. CONCLUSION: The uterus is enlarged by multiple areas of mixed echogenicity within the myometrium consistent with degenerative fibroids. This pattern is similar to that seen on prior CT. Normal evaluation of the ova [place]. The endometrium appears thickened within the region of the uterine fundus. Given the patient's history of LMP of February this area may require sampling.. Vi Aguayo MD on May 05, 2016 at 13:17 Board Certified Radiologist. This report was verified electronically.
[2016-05-05] MEDS ORDERED: hydrALAZINE HCL 20 MG/ML VIAL IV PRN (16:45)
[2016-05-05] MEDS: MONTELUKAST SODIUM 10 MG TAB PO SCH (19:46)
[2016-05-05] MEDS: METOPROLOL TARTRATE 25 MG TAB PO SCH (19:46)
--- NOTE | 2016-05-05 20:07 | EKG ---
Date Performed: 05/04/2016 Time Performed: 17:00:05 PTAGE: 51 years EKG: SINUS TACHYCARDIA WITH SHORT MO INTERVAL POSSIBLE LEFT ATRIAL ENLARGEMENT POSSIBLE LEFT GWENDOLYN TRICULAR HYPERTROPHY NONSPECIFIC T-WAVE ABNORMALITY When compared to previous tracing, sinus rate has increased. Criteria for left ventricular hypertrophy are now present. ABNORMAL ECG PREVIOUS TRACING : 11/16/2014 00.11 DOCTOR: Delmar Bal Interpretating Date/Time 05/05/2016 20:05:36
[2016-05-05] MEDS: CYCLOBENZAPRINE HCL 10 MG TAB PO PRN (21:20)
[2016-05-06] VITALS (36 sets, daily range): BP systolic 142–207; BP diastolic 89–139; PULSE 76–113; RESP 17–20; TEMP 98.4–98.9; O2SAT 96–98
[2016-05-06] MEDS: LISINOPRIL 20 MG TAB PO SCH (08:12)
[2016-05-06] MEDS: NIFEdipine 30 MG SUSTAINED RELEASE TAB PO SCH ×2 (08:12→09:00)
[2016-05-06] MEDS: HYDROCHLOROTHIAZIDE 25 MG TAB PO SCH (08:13)
[2016-05-06] MEDS: METOPROLOL TARTRATE 25 MG TAB PO SCH (08:13)
[2016-05-06] MEDS: SODIUM CHLORIDE 0.9% FLUSH 5 ML FLUSH FLUSH SCH ×2 (08:15→22:08)
[2016-05-06] MEDS: ACETAMINOPHEN/HYDROcodone 325 MG/7.5 MG TAB PO PRN ×2 (08:25→22:17)
[2016-05-06] MEDS ORDERED: NIFEdipine 30 MG SUSTAINED RELEASE TAB PO ONE (09:45)
--- NOTE | 2016-05-06 12:00 | HHI.PR ---
Subjective Remarks Follow up for accelerated hypertension, cardiomyopathy. Patient is currently doing well. Denies any chest pain, shortness of breath, fever or chills. Objective Vitals Vital Signs Date Time Temp Pulse Resp B/P Pulse Ox O2 Delivery O2 Flow Rate FiO2 05/06/16 11:40 98.9 95 19 198/125 96 05/06/16 11:00 90 05/06/16 10:00 97 05/06/16 09:34 158/102 05/06/16 09:00 95 05/06/16 08:00 94 05/06/16 07:30 98.5 113 19 193/139 98 05/06/16 07:00 100 05/06/16 05:00 94 05/06/16 04:00 94 05/06/16 03:00 100 05/06/16 02:00 94 05/06/16 01:00 98 05/06/16 00:00 90 05/05/16 23:00 98 05/05/16 22:00 90 05/05/16 21:00 98 05/05/16 20:00 99 05/05/16 19:25 99 18 147/97 98 Room Air 05/05/16 19:00 112 05/05/16 17:15 78 16 201/90 98 Room Air 05/05/16 14:00 75 16 198/98 98 Room Air 05/05/16 12:36 16 05/05/16 12:18 95 22 161/109 98 Room Air 05/05/16 12:00 95 16 165/103 99 Room Air I/O 05/05/16 05/05/16 05/05/16 05/06/16 05/06/16 05/06/16 07:00 15:00 23:00 07:00 15:00 23:00 Intake Total 240 ml Balance 240 ml Intake Oral 240 ml Result Diagram: 05/05/16 0435 05/05/16 0435 Imaging Last Impressions Pelvis Ultrasound 05/05/16 0000 Signed Impressions: Service Date/Time: April 09:04 - CONCLUSION: The uterus is enlarged by multiple areas of mixed echogenicity within the myometrium consistent with degenerative fibroids. This pattern is similar to that seen on prior CT. Normal evaluation of the ovaries. The endometrium appears thickened within the region of the uterine fundus. Given the patient's history of LMP of February this area may require sampling.. Vi Aguayo MD Chest X-Ray 05/04/16 1614 Signed Impressions: Service Date/Time: Wednesday, May 04, 2016 16:30 - CONCLUSION: No acute disease. No significant change has occurred. Stable left ventricular cardiomegaly Armando Tobin MD Head CT 05/04/16 0000 Signed Impressions: Service Date/Time: Wednesday, May 04, 2016 23:58 - CONCLUSION: Normal examination for a patient of this age. Gold Tabares MD Objective Remarks GENERAL: Alert, oriented 3, NAD. Morbidly obese. SKIN: Warm and dry. HEAD: Normocephalic. EYES: No scleral icterus. No injection or drainage. NECK: Supple, trachea midline. No JVD or lymphadenopathy. CARDIOVASCULAR: Regular rate and rhythm without murmurs, gallops, or rubs. RESPIRATORY: Breath sounds equal bilaterally. No accessory muscle use. GASTROINTESTINAL: Abdomen soft, non-tender, nondistended. MUSCULOSKELETAL: No cyanosis, or edema. BACK: Nontender without obvious deformity. No CVA tenderness. Procedures None A/P Problem List: (1) Accelerated hypertension ICD Code: I10 Status: Acute (2) Chest pain ICD Code: R07.9 Status: Acute (3) Acute renal insufficiency ICD Code: N28.9 Status: Acute (4) Hypochromic microcytic anemia ICD Code: D50.9 Status: Chronic Assessment and Plan Ms. Wilson is a 59-year-old morbidly obese female who presented to the emergency department with accelerated hypertension, headache, atypical chest pain. - Accelerated hypertension - Patient was on clonidine at home. We discontinued clonidine. - Continue lisinopril 40 mg by mouth daily, nifedipine 60 mg by mouth daily, metoprolol 12.5 mg by mouth every 12 hours, hydrochlorothiazide 25 mg by mouth daily. - Cardiomyopathy - likely related to hypertension. - Discussed with cardiology. We'll obtain a Lexiscan. - Bilateral shoulder pain - Continue Flexeril 10 mg every 8 hours when necessary, [place] 7.5 mg/325 mg every 6 hours when necessary. 0.5mg Dilaudid IV for breakthrough. - IV hydralazine 10 mg every 6 hours when necessary for blood pressure over 170/100. - Morbid obesity - possibly contributing to sleep apnea, hypertension. - Consider outpatient sleep study. Full code. SCDs. Problem Qualifiers (1) Chest pain: Qualified Code: R07.9 - Chest pain, unspecified type Aydin Christianson DO May 06, 2016 12:00 pm
[2016-05-06] MEDS: LABETALOL HCL 100 MG/20 ML VIAL IV PUSH PRN ×3 (12:49→17:15)
--- NOTE | 2016-05-06 13:12 | PD.CARD.PN ---
Subjective Subjective Remarks no complaints Objective Medications Current Medications Medications (Trade) Dose Ordered Sig/Brent Route Start Time Stop Time Status Last Admin (Prinivil) 40 mg DAILY PO 05/05/16 09:00 05/06/16 08:12 (NS Flush) 2 ml UNSCH PRN FLUSH 05/04/16 19:00 (NS Flush) 2 ml BID FLUSH 05/04/16 21:00 05/06/16 08:15 (Vasotec Inj) 1.25 mg Q6H PRN IV 05/04/16 19:00 05/05/16 21:20 (Nitrostat Sl) 0.4 mg Q5M PRN SL 05/04/16 23:30 (Singulair) 10 mg HS PO 05/05/16 21:00 05/05/16 19:46 (Dilaudid Pf Inj) 0.5 mg Q4H PRN IV PUSH 05/05/16 08:45 ([place] 7.5-325 Mg) 1 tab Q6H PRN PO 05/05/16 08:15 05/06/16 08:25 (Tylenol) 650 mg Q4H PRN PO 05/05/16 08:15 (Flexeril) 10 mg Q8HR PRN PO 05/05/16 08:15 05/05/16 21:20 (Hydrodiuril) 25 mg DAILY PO 05/06/16 09:00 05/06/16 08:13 (Lopressor) 12.5 mg Q12HR PO 05/05/16 21:00 05/06/16 08:13 (Pill Splitter) 1 ea UNSCH PRN OTHER 05/05/16 11:15 (Apresoline Inj) 10 mg Q6H PRN IV 05/05/16 16:45 05/05/16 22:33 (Procardia Xl) 60 mg DAILY PO 05/06/16 09:00 (Trandate Inj) 20 mg Q20M PRN IV PUSH 05/06/16 12:30 05/06/16 12:49 Vital Signs / I&O Vital Signs Date Time Temp Pulse Resp B/P Pulse Ox O2 Delivery O2 Flow Rate FiO2 05/06/16 12:57 158/105 05/06/16 12:57 164/112 05/06/16 12:54 177/116 05/06/16 12:00 98 05/06/16 12:00 207/130 05/06/16 11:40 98.9 95 19 198/125 96 05/06/16 11:00 90 05/06/16 10:00 97 05/06/16 09:34 158/102 05/06/16 09:00 95 05/06/16 08:00 94 05/06/16 07:30 98.5 113 19 193/139 98 05/06/16 07:00 100 05/06/16 05:00 94 05/06/16 04:00 94 05/06/16 03:00 100 05/06/16 02:00 94 05/06/16 01:00 98 05/06/16 00:00 90 05/05/16 23:00 98 05/05/16 22:00 90 05/05/16 21:00 98 05/05/16 20:00 99 05/05/16 19:25 99 18 147/97 98 Room Air 05/05/16 19:00 112 05/05/16 17:15 78 16 201/90 98 Room Air 05/05/16 14:00 75 16 198/98 98 Room Air I/O 05/05/16 05/05/16 05/05/16 05/06/16 05/06/16 05/06/16 07:00 15:00 23:00 07:00 15:00 23:00 Intake Total 240 ml Balance 240 ml Intake Oral 240 ml Physical Exam GENERAL: Well-nourished, well-developed patient. SKIN: Warm and dry. HEAD: Normocephalic. EYES: No scleral icterus. No injection or drainage. NECK: Supple, trachea midline. No JVD or lymphadenopathy. CARDIOVASCULAR: Regular rate and rhythm without murmurs, gallops, or rubs. RESPIRATORY: Breath sounds equal bilaterally. No accessory muscle use. GASTROINTESTINAL: Abdomen soft, non-tender, nondistended. EXTREMITIES: No cyanosis, or edema. NEUROLOGICAL: Awake, alert, and oriented x 3. Non-focal. Assessment and Plan Problem List: (1) LV dysfunction Assessment and Plan: LV systolic function 30% non vs ischemic CMP MPI today Continue optimization of medical therapy for HTN (2) HTN (hypertension) (3) Hypertensive urgency (4) Obesity (5) Acute renal insufficiency Problem Qualifiers (1) HTN (hypertension): Qualified Code: I10 - Essential hypertension Trace Etienne MD May 06, 2016 13:12
[2016-05-06] MEDS ORDERED: EPINEPHrine HCL (1:10,000) 1 MG/10 ML SYRINGE ONE (14:12)
[2016-05-06] MEDS ORDERED: ATROPINE SULFATE 1 MG/10 ML SYRINGE ONE (14:12)
[2016-05-06] MEDS: LABETALOL HCL 200 MG TAB PO SCH (22:07)
[2016-05-06] MEDS: CYCLOBENZAPRINE HCL 10 MG TAB PO PRN (22:07)
[2016-05-06] MEDS: MONTELUKAST SODIUM 10 MG TAB PO SCH (22:07)
[2016-05-07] VITALS (22 sets, daily range): BP systolic 141–164; BP diastolic 95–116; PULSE 84–100; RESP 18–20; TEMP 98.1–98.6; O2SAT 96–98
[2016-05-07] MEDS: ACETAMINOPHEN/HYDROcodone 325 MG/7.5 MG TAB PO PRN ×3 (03:48→20:51)
[2016-05-07] MEDS: LABETALOL HCL 200 MG TAB PO SCH ×2 (09:03→20:50)
[2016-05-07] MEDS: NIFEdipine 30 MG SUSTAINED RELEASE TAB PO SCH (09:03)
[2016-05-07] MEDS: LISINOPRIL 20 MG TAB PO SCH (09:03)
[2016-05-07] MEDS: HYDROCHLOROTHIAZIDE 25 MG TAB PO SCH (09:04)
[2016-05-07] MEDS: SODIUM CHLORIDE 0.9% FLUSH 5 ML FLUSH FLUSH SCH ×2 (09:05→20:51)
[2016-05-07] MEDS: LABETALOL HCL 100 MG/20 ML VIAL IV PUSH PRN (09:21)
[2016-05-07] MEDS ORDERED: REGADENOSON INJ 0.4 MG/5 ML SYR ONE (09:56)
[2016-05-07] MEDS ORDERED: AMINOPHYLLINE INJ 500 MG/20 ML VIAL IV ONE (10:45)
--- NOTE | 2016-05-07 13:00 | RADRPT ---
EXAM DATE/TIME: 05/07/2016 11:03 [facility] COMPARISON: No previous studies available for comparison. INDICATIONS : Resistant hypertension. MEDICAL HISTORY : Hypertension. Morbidily obese. Dyspnea. Measles. SURGICAL HISTORY : section. ENCOUNTER: Initial ACUITY: 1 day PAIN SCORE: 0/10 LOCATION: Bilateral flank PEAK FLOW VELOCITIES (cm/sec): AORTA: 102 PROXIMAL: 120 MID: 102 DISTAL: 86 RIGHT RENAL ARTERY: PROXIMAL: NOT VISUALIZED MID: NOT VISUALIZED DISTAL: 162 RENAL ARTERY RATIO: 1.35 ARCUATE ARTERY RESISTIVE INDEX: Upper: 0.6 Mid: 0.6 Lower: 0.6 LEFT RENAL ARTERY: PROXIMAL: NOT VISUALIZED MID: NOT VISUALIZED DISTAL: NOT VISUALIZED RENAL ARTERY RATIO: NOT VISUALIZED ARCUATE ARTERY RESISTIVE INDEX: Upper: NOT VISUALIZED Mid: NOT VISUALIZED Lower: NOT VISUALIZED COMPLETE APPROPRIATE ITEMS PRE PROCEEURE: ID x 2: Complete NameDate of BirthPatient Name BandEducation: Nurse/Technologist explained procedur e to patient/family. Patient/family demonstrates understanding of procedure. FINDINGS: Renal artery and vein mapping as listed above. CONCLUSION: Limited examination. Gold Tabares MD on May 07, 2016 at 12:57 Board Certified Radiologist. This report was verified electronically.
--- NOTE | 2016-05-07 13:10 | HHI.PR ---
Subjective Remarks Follow-up for accelerated hypertension, cardiomyopathy. Patient returned from second part of nuclear stress test. Currently doing well. Denies any chest pain, shortness of breath, fever or chills. Whenever she moves or walks, her blood pressure goes up. Objective Vitals Vital Signs Date Time Temp Pulse Resp B/P Pulse Ox O2 Delivery O2 Flow Rate FiO2 05/07/16 06:00 93 05/07/16 05:00 94 05/07/16 04:00 98.6 96 18 163/97 96 05/07/16 04:00 Room Air 05/07/16 04:00 96 05/07/16 03:00 91 05/07/16 02:00 90 05/07/16 01:00 84 05/07/16 00:00 88 05/07/16 00:00 98.3 88 18 164/95 97 05/07/16 00:00 Room Air 05/06/16 23:00 85 05/06/16 22:00 87 05/06/16 21:00 92 05/06/16 20:00 91 05/06/16 20:00 98.4 91 20 160/98 97 05/06/16 18:13 142/89 05/06/16 18:06 95 05/06/16 17:20 154/90 05/06/16 17:19 171/108 05/06/16 17:18 185/116 05/06/16 17:00 93 05/06/16 16:49 179/103 05/06/16 16:00 76 05/06/16 15:56 98.9 89 17 180/113 98 05/06/16 15:00 90 05/06/16 14:07 165/112 05/06/16 14:06 179/120 05/06/16 14:05 181/122 05/06/16 14:00 89 I/O 05/06/16 05/06/16 05/06/16 05/07/16 05/07/16 05/07/16 07:00 15:00 23:00 07:00 15:00 23:00 Intake Total 450 ml 242 ml Output Total 800 ml 650 ml Balance -350 ml -408 ml Intake Oral 450 ml 240 ml IV Total 2 ml Output Urine Total 800 ml 650 ml # Bowel Movements 0 Result Diagram: 05/05/1643405/05/16434 Imaging Last Impressions Pelvis Ultrasound 05/05/16 0000 Signed Impressions: Service Date/Time: April 09:04 - CONCLUSION: The uterus is enlarged by multiple areas of mixed echogenicity within the myometrium consistent with degenerative fibroids. This pattern is similar to that seen on prior CT. Normal evaluation of the ovaries. The endometrium appears thickened within the region of the uterine fundus. Given the patient's history of LMP of February this area may require sampling.. Vi Aguayo MD Chest X-Ray 05/04/16 1614 Signed Impressions: Service Date/Time: Wednesday, May 04, 2016 16:30 - CONCLUSION: No acute disease. No significant change has occurred. Stable left ventricular cardiomegaly Armando Tobin MD Head CT 05/04/16 0000 Signed Impressions: Service Date/Time: Wednesday, May 04, 2016 23:58 - CONCLUSION: Normal examination for a patient of this age. Gold Tabares MD Objective Remarks GENERAL: Alert, oriented 3, NAD. Morbidly obese. SKIN: Warm and dry. HEAD: Normocephalic. EYES: No scleral icterus. No injection or drainage. NECK: Supple, trachea midline. No JVD or lymphadenopathy. CARDIOVASCULAR: Regular rate and rhythm without murmurs, gallops, or rubs. RESPIRATORY: Breath sounds equal bilaterally. No accessory muscle use. GASTROINTESTINAL: Abdomen soft, non-tender, nondistended. MUSCULOSKELETAL: No cyanosis, or edema. BACK: Nontender without obvious deformity. No CVA tenderness. Procedures None A/P Problem List: (1) Accelerated hypertension ICD Code: I10 Status: Acute (2) Chest pain ICD Code: R07.9 Status: Acute (3) Acute renal insufficiency ICD Code: N28.9 Status: Acute (4) Hypochromic microcytic anemia ICD Code: D50.9 Status: Chronic Assessment and Plan Ms. Wislon is a 59-year-old morbidly obese female who presented to the emergency department with accelerated hypertension, headache, atypical chest pain. - Accelerated hypertension - Patient was on clonidine at home. We discontinued clonidine. - Continue lisinopril 40 mg by mouth daily, nifedipine 60 mg by mouth daily, labetalol 200 mg by mouth every 12 hours, hydrochlorothiazide 25 mg by mouth daily. - Renal ultrasound completed, final report pending. - Cardiomyopathy - likely related to hypertension. - Lexiscan completed. Final report pending. Will discuss further with cardiology after Lexiscan report is available. - Bilateral shoulder pain - Continue Flexeril 10 mg every 8 hours when necessary, [place] 7.5 mg/325 mg every 6 hours when necessary. 0.5mg Dilaudid IV for breakthrough. - INES - creatinine improved from 1.23 --> 1.18. We'll monitor. - Morbid obesity - possibly contributing to sleep apnea, hypertension. - Consider outpatient sleep study. - Discussed with patient at length on 05/07/2016 regarding lifestyle modification including increased exercise as well as eating fresh fruits and vegetables. - Strongly advised patient to refrain from high salt food such as processed meat, canned food etc. Full code. Lovenox. Problem Qualifiers (1) Chest pain: Qualified Code: R07.9 - Chest pain, unspecified type Aydin Christianson DO May 07, 2016 1:10 pm
--- NOTE | 2016-05-07 13:28 | RADRPT ---
EXAM DATE/TIME: 05/07/2016 10:39 [facility] COMPARISON: No previous studies available for comparison. INDICATIONS : Cardiomyopathy DOSE: 30.0 mCi Tc99m Myoview at stress. 30.1 mCi Tc99m Myoview at rest. 0.4 mg Lexiscan STRESS SYMPTOMS: Chest pressure, shortness of breath, flush and sweating MEDICATIONS: 1.) 100 mg Aminophylline IV EJECTION FRACTION: 29% MEDICAL HISTORY : Hypertension. Asthma SURGICAL HISTORY : section. Lysis of adhesions ENCOUNTER: Initial ACUITY: 3 days PAIN SCALE: 2/10 LOCATION: chest tightness TECHNIQUE: The patient underwent pharmacologic stress with infusion of prescribed dose. Continuous ECG tracing was monitored during stress. Gated SPECT imaging was performed after stress and conventional SPECT i maging was performed at rest. The examination was performed on a SPECT/CT scanner, both attenuation and non-corrected datasets were reviewed. FINDINGS: DISTRIBUTION: The maximum perfused segment at stress is in the anterior wall. PERFUSION STUDY: The pattern of perfusion at stress is within normal limits. GATED STUDY: Diffuse global hypokinesis. CONCLUSION: 1. No evidence of ischemic myocardial disease at this time. 2. Diffuse global hypokinesis with a cardiac ejection fraction of 29%. RISK CATEGORY: Low Gold Tabares MD on May 07, 2016 at 13:25 Board Certified Radiologist. This report was verified electronically.
[2016-05-07] MEDS ORDERED: ENOXAPARIN SODIUM 40 MG/0.4 ML SYRINGE SQ SCH (14:00)
[2016-05-07] MEDS: ENALAPRILAT 1.25 MG/ML VIAL IV PRN ×2 (14:05→21:10)
[2016-05-07] MEDS: RESP: ALBUTEROL 2.5 MG/IPRATROPIUM 0.5 MG NEB (PRN) NEB (14:10)
[2016-05-07] MEDS: CYCLOBENZAPRINE HCL 10 MG TAB PO PRN (20:51)
[2016-05-07] MEDS: MONTELUKAST SODIUM 10 MG TAB PO SCH (20:51)
[2016-05-08] VITALS (11 sets, daily range): BP systolic 139–157; BP diastolic 87–105; PULSE 79–105; RESP 18–22; TEMP 98–98.8; O2SAT 97–98
[2016-05-08] MEDS: LISINOPRIL 20 MG TAB PO SCH (08:33)
[2016-05-08] MEDS: NIFEdipine 30 MG SUSTAINED RELEASE TAB PO SCH (08:33)
[2016-05-08] MEDS: LABETALOL HCL 200 MG TAB PO SCH (08:34)
[2016-05-08] MEDS: SODIUM CHLORIDE 0.9% FLUSH 5 ML FLUSH FLUSH SCH (08:34)
[2016-05-08] MEDS: HYDROCHLOROTHIAZIDE 25 MG TAB PO SCH (08:42)
[2016-05-08] MEDS ORDERED: guaiFENesin/CODEINE SYRUP 200 MG/20 MG/10 ML CUP PO PRN (09:00)
[2016-05-08] MEDS ORDERED: CYCL1TAB29 PO (09:27)
[2016-05-08] MEDS ORDERED: GUAI100S5 PO (09:27)
[2016-05-08] MEDS ORDERED: HYDR25TA5 PO (09:27)
[2016-05-08] MEDS ORDERED: NIFE30TA8 PO (09:27)
[2016-05-08] MEDS ORDERED: LISI40TA PO (09:27)
[2016-05-08] MEDS ORDERED: LABE200T2 PO (09:27)
--- NOTE | 2016-05-08 09:35 | HHI.DS ---
Discharge Summary Admission Date May 05, 2016 at 8:10 am Discharge Date: May 08, 2016 Admitting Diagnosis hypertensive urgency, chest pain (1) Accelerated hypertension ICD Code: I10 Diagnosis: Principal (2) Chest pain ICD Code: R07.9 (3) Acute renal insufficiency ICD Code: N28.9 (4) Hypochromic microcytic anemia ICD Code: D50.9 (5) Nonischemic cardiomyopathy ICD Code: I42.8 Diagnosis: Principal Procedures None Brief History - From Admission Ms. Wilson is a 51-year-old female with a past medical history of hypertension with medication noncompliance, asthma, and obesity who presented to the emergency room 05/04/2016 for evaluation of chest tightness over the past couple of weeks with some intermittent cough and congestion for a few days. Blood pressure was 267/147 on admission. The patient has a history of medication noncompliance. BNP was mildly elevated at 456 and chest x-ray showed no acute disease with stable left ventricular cardiomegaly. Acute renal insufficiency is noted with BUN at upper limit of normal at 18, creatinine elevated at 1.23 and estimated GFR low at 56 which is somewhat worsened when compared to prior labs during previous visits. CBC is consistent with chronic anemia from prior visits. She is admitted for observation. She is seen in the ER. She states she came in because of headache, worsening of chronic left shoulder pain, and sinus congestion. She also complains of chest tightness, like bricks sitting on it - worse with exertion. She also reports that she has been having worsening shortness of breath. She complains of severe fatigue, PICA with craving ice, muscles that are aching all over, chronic left shoulder pain, and nipple pain. No menses since February; previously had heavy periods with saturation of 5 Maxi pads daily. CBC/BMP: 05/05/16 0435 05/05/16 0435 Imaging Last Impressions Renal Ultrasound 05/07/16 0000 Signed Impressions: Service Date/Time: Saturday, May 07, 2016 11:03 - CONCLUSION: Limited examination. Gold Tabares MD Myocardial Perfusion Scan Nuc Med 05/06/16 0000 Signed Impressions: Service Date/Time: Saturday, May 07, 2016 10:39 - CONCLUSION: 1. No evidence of ischemic myocardial disease at this time. 2. Diffuse global hypokinesis with a cardiac ejection fraction of 29%%. RISK CATEGORY: Low Gold Tabares MD Pelvis Ultrasound 05/05/16 0000 Signed Impressions: Service Date/Time: April 09:04 - CONCLUSION: The uterus is enlarged by multiple areas of mixed echogenicity within the myometrium consistent with degenerative fibroids. This pattern is similar to that seen on prior CT. Normal evaluation of the ovaries. The endometrium appears thickened within the region of the uterine fundus. Given the patient's history of LMP of February this area may require sampling.. Vi Aguayo MD Chest X-Ray 05/04/16 1614 Signed Impressions: Service Date/Time: Wednesday, May 04, 2016 16:30 - CONCLUSION: No acute disease. No significant change has occurred. Stable left ventricular cardiomegaly Armando Tobin MD Head CT 05/04/16 0000 Signed Impressions: Service Date/Time: Wednesday, May 04, 2016 23:58 - CONCLUSION: Normal examination for a patient of this age. Gold Tabares MD PE at Discharge GENERAL: Alert, oriented 3, NAD. Morbidly obese. SKIN: Warm and dry. HEAD: Normocephalic. EYES: No scleral icterus. No injection or drainage. NECK: Supple, trachea midline. No JVD or lymphadenopathy. CARDIOVASCULAR: Regular rate and rhythm without murmurs, gallops, or rubs. RESPIRATORY: Breath sounds equal bilaterally. No accessory muscle use. GASTROINTESTINAL: Abdomen soft, non-tender, nondistended. MUSCULOSKELETAL: No cyanosis, or edema. BACK: Nontender without obvious deformity. No CVA tenderness. Pt update on day of discharge Ms. Wilson is doing well. No chest pain, fever, chills. Tolerating diet well. Remains motivated to do lifestyle modifications including better diet, exercise. Hospital Course Ms. Wilson is a 59-year-old morbidly obese female who presented to the emergency department with accelerated hypertension, headache, atypical chest pain. - Accelerated hypertension - Patient was on clonidine at home. We discontinued clonidine. - Continue lisinopril 40 mg by mouth daily, nifedipine 60 mg by mouth daily, labetalol 200 mg by mouth every 12 hours, hydrochlorothiazide 25 mg by mouth daily. - Renal ultrasound completed but limited study. - Patient will need an outpatient sleep study. If positive, she will need CPAP. - If hypertension remains resistant, recommend Renal artery MRA in the outpatient setting. - Hypertrophic Cardiomyopathy - likely related to hypertension. - Lexiscan completed --> non-ischemic cardiomyopathy with EF 29%. - Since patient is asymptomatic from Cardiomyopathy standpoint, we recommend lifestyle modifications (diet, exercise, low salt diet) as well as outpatient follow up with Cardiology. - Bilateral shoulder pain - While in the hospital, continue Flexeril 10 mg every 8 hours when necessary , [place] 7.5 mg/325 mg every 6 hours when necessary. 0.5mg Dilaudid IV for breakthrough. - Would advise Lemmon use only for a few days at most. Flexeril PRN. - INES - creatinine improved from 1.23 --> 1.18. - Morbid obesity - possibly contributing to sleep apnea, hypertension. - Consider outpatient sleep study. - Discussed with patient at length on 05/07/2016 regarding lifestyle modification including increased exercise as well as eating fresh fruits and vegetables. - Strongly advised patient to refrain from high salt food such as processed meat, canned food etc. Will discharge patient home today with follow up with PCP and Cardiology. Pt Condition on Discharge: Good Discharge Disposition: Discharge Home Discharge Time: > 30 minutes Discharge Instructions DIET: Follow Instructions for: Heart Healthy Diet Activities you can perform: Regular-No Restrictions Follow up Referrals: Cardiology - 2 Weeks with Trace Etienne MD PCP Follow-up - 1 Week New Medications: Cyclobenzaprine (Flexeril) 10 Mg Tab 10 MG PO Q8HR PRN Shoulder pain. #20 TAB Guaifenesin-Codeine Liq (Guaifenesin-Codeine Liq) 100-10 Mg/5 Ml Soln 10 ML PO Q6H PRN COUGH Days 14 ML Hydrochlorothiazide (Hydrochlorothiazide) 25 Mg Tab 25 MG PO DAILY Blood Pressure Management #30 TAB Labetalol (Labetalol) 200 Mg Tab 200 MG PO Q12HR Blood Pressure Management #60 TAB Nifedipine ER 24 HR (Nifedipine ER 24 HR) 30 Mg Tab 60 MG PO DAILY Blood Pressure Management #30 TAB Continued Medications: Albuterol 6.7 GM Inh (Proventil Hfa 6.7 GM Inh) 90 Mcg/Act Aer 2 PUFF INH Q4-6H PRN SHORTNESS OF BREATH #1 Ref 0 INHALER Aspirin (Aspirin) 81 Mg Chew 81 MG CHEW DAILY Ref 0 TAB Hydrocodone-Acetaminophen (Lortab) 5-325 Mg Tab 1 TAB PO Q6H PRN PAIN Ref 0 TAB Lisinopril (Lisinopril) 40 Mg Tab 40 MG PO DAILY Blood Pressure Management #30 Ref 0 TAB (This prescription has been renewed) Discontinued Medications: Clonidine (Clonidine) 0.2 Mg Tab 0.2 MG PO BID Blood Pressure Management #60 Ref 0 TAB Naproxen Sodium (Aleve) 220 Mg Tab 220 MG PO BID PRN Pain Management Ref 0 TAB Aydin Christianson DO May 08, 2016 09:35
[2016-05-08] MEDS: RESP: ALBUTEROL 2.5 MG/IPRATROPIUM 0.5 MG NEB (PRN) NEB (10:11)
--- NOTE | 2016-05-08 10:55 | PD.CARD.PN ---
Subjective Subjective Remarks no complaints Objective Medications Current Medications Medications (Trade) Dose Ordered Sig/Brent Route Start Time Stop Time Status Last Admin (Prinivil) 40 mg DAILY PO 05/05/16 09:00 05/08/16 08:33 (NS Flush) 2 ml UNSCH PRN FLUSH 05/04/16 19:00 (NS Flush) 2 ml BID FLUSH 05/04/16 21:00 05/08/16 08:34 (Vasotec Inj) 1.25 mg Q6H PRN IV 05/04/16 19:00 05/07/16 21:10 (Nitrostat Sl) 0.4 mg Q5M PRN SL 05/04/16 23:30 (Singulair) 10 mg HS PO 05/05/16 21:00 05/07/16 20:51 (Dilaudid Pf Inj) 0.5 mg Q4H PRN IV PUSH 05/05/16 08:45 ([place] 7.5-325 Mg) 1 tab Q6H PRN PO 05/05/16 08:15 05/07/16 20:51 (Tylenol) 650 mg Q4H PRN PO 05/05/16 08:15 (Flexeril) 10 mg Q8HR PRN PO 05/05/16 08:15 05/07/16 20:51 (Hydrodiuril) 25 mg DAILY PO 05/06/16 09:00 05/08/16 08:42 (Pill Splitter) 1 ea UNSCH PRN OTHER 05/05/16 11:15 (Trandate Inj) 20 mg Q20M PRN IV PUSH 05/06/16 12:30 05/07/16 09:21 (Trandate) 200 mg Q12HR PO 05/06/16 21:00 05/08/16 08:34 (Lovenox Inj) 40 mg Q24H SQ 05/07/16 14:00 05/07/16 14:05 (Robitussin Ac 200-20 Mg/10 ml Liq) 10 ml Q6H PRN PO 05/08/16 09:00 05/08/16 09:27 (Procardia Xl) 90 mg DAILY PO 05/09/16 09:00 (Apresoline) 10 mg Q8HR PO 05/08/16 14:00 Vital Signs / I&O Vital Signs Date Time Temp Pulse Resp B/P Pulse Ox O2 Delivery O2 Flow Rate FiO2 05/08/16 10:13 97 05/08/16 07:30 98.8 105 22 153/105 98 05/08/16 07:30 98 Room Air 05/08/16 07:00 79 05/08/16 06:00 91 05/08/16 05:00 90 05/08/16 04:00 93 05/08/16 04:00 Room Air 05/08/16 04:00 98.0 93 18 157/95 97 05/08/16 03:00 87 05/08/16 02:00 92 05/08/16 01:00 88 05/08/16 00:00 Room Air 05/08/16 00:00 98.1 84 20 139/87 97 05/08/16 00:00 84 05/07/16 23:00 98 05/07/16 22:00 94 05/07/16 21:00 96 05/07/16 20:00 98.3 90 20 159/106 98 05/07/16 20:00 90 05/07/16 20:00 Room Air 05/07/16 18:00 97 05/07/16 17:00 88 05/07/16 16:00 91 05/07/16 15:00 98.1 90 20 145/97 96 05/07/16 15:00 89 05/07/16 14:11 98 21 05/07/16 14:00 99 05/07/16 13:00 84 05/07/16 12:30 98.2 88 20 141/105 96 I/O 05/07/16 05/07/16 05/07/16 05/08/16 05/08/16 05/08/16 07:00 15:00 23:00 07:00 15:00 23:00 Intake Total 242 ml 1080 ml 242 ml Output Total 650 ml 700 ml Balance -408 ml 1080 ml -458 ml Intake Oral 240 ml 1080 ml 240 ml IV Total 2 ml 2 ml Output Urine Total 650 ml 700 ml # Voids 4 # Bowel Movements 0 1 0 Physical Exam GENERAL: Well-nourished, well-developed patient. SKIN: Warm and dry. HEAD: Normocephalic. EYES: No scleral icterus. No injection or drainage. NECK: Supple, trachea midline. No JVD or lymphadenopathy. CARDIOVASCULAR: Regular rate and rhythm without murmurs, gallops, or rubs. RESPIRATORY: Breath sounds equal bilaterally. No accessory muscle use. GASTROINTESTINAL: Abdomen soft, non-tender, nondistended. EXTREMITIES: No cyanosis, or edema. NEUROLOGICAL: Awake, alert, and oriented x 3. Non-focal. Assessment and Plan Problem List: (1) HTN (hypertension) Assessment and Plan: BP better controlled this AM Increase Procardia XL to 90mg Po daily (2) LV dysfunction (3) Hypertensive urgency (4) Obesity (5) Acute renal insufficiency Problem Qualifiers (1) HTN (hypertension): Qualified Code: I10 - Essential hypertension Trace Etienne MD May 08, 2016 10:55
[2016-05-08] MEDS ORDERED: NIFE1TAB PO (11:10)
[2016-05-08] MEDS: ACETAMINOPHEN/HYDROcodone 325 MG/7.5 MG TAB PO PRN (12:25)
[2016-05-08] MEDS ORDERED: hydrALAZINE HCL 10 MG TAB PO SCH (14:00)
[2016-05-09] MEDS ORDERED: NIFEdipine 30 MG SUSTAINED RELEASE TAB PO SCH (09:00)
== END 2016-05-08 14:25 | disposition home or self-care (01) | DRG 305 ==
LOC: NEPE 15:35 → NEDA 18:22 → INTOOBSV 18:22 → NEDH 05-05 01:43 → OBSVTOIN 05-05 08:10 → HCIS 05-05 20:52
PROVIDERS: ADMIT Hospitalist; ATTEND Hospitalist
DX: I16.0 Hypertensive urgency (principal); N17.9 Acute kidney failure, unspecified; Z68.42 Body mass index [BMI] 45.0-49.9, adult; I42.2 Other hypertrophic cardiomyopathy; E66.01 Morbid (severe) obesity due to excess calories; I11.9 Hypertensive heart disease without heart failure; F50.89 Other specified eating disorder; D50.9 Iron deficiency anemia, unspecified; J45.909 Unspecified asthma, uncomplicated; M75.02 Adhesive capsulitis of left shoulder; M19.011 Primary osteoarthritis, right shoulder; M19.012 Primary osteoarthritis, left shoulder; R07.89 Other chest pain; R00.0 Tachycardia, unspecified; Z71.3 Dietary counseling and surveillance; Z87.891 Personal history of nicotine dependence; Z91.14 Patient's other noncompliance with medication regimen; M54.9 Dorsalgia, unspecified; G89.29 Other chronic pain
CPT/HCPCS: 70450; 71010; 76856; 78452; 80048; 80053; 82550; 83540; 83550; 83735; 83880; 84484; 84702; 84703; 85025; 85610; 85730; 87804; 93005; 93017; 93306; 93975; 94640; 94664; A9502; G0378; J0171; J0280; J0360; J0461; J1170; J1650; J2785

== ENCOUNTER 2016-10-18 14:29 | Inpatient (IN) | payer MEDICAID ==
[~2016-10-18] VITALS: Ht 157.5 cm; Wt 123.4 kg
[2016-10-18] VITALS (14 sets, daily range): BP systolic 174–221; BP diastolic 86–129; PULSE 89–115; RESP 18–30; TEMP 98–98.4; O2SAT 94–98
[~2016-10-18 14:29] MED LIST changes: -ALBU.5I INH; +ALBU6.7H INH; -ASPI325T PO; +ASPI81CH CHEW; -CLON.2 PO; -CYCL-36 PO; +CYCL1TAB29 PO; +GUAI100S5 PO; +HYDR25TA5 PO; +LABE200T2 PO; -NAPR220T95 PO; +NIFE1TAB PO; -TAB-TAB PO
[2016-10-18] MEDS ORDERED: SODIUM CHLORIDE 0.9% FLUSH 10 ML FLUSH IVF PRN (15:00)
[2016-10-18] MEDS ORDERED: hydrOXYzine HCL 50 MG/ML VIAL IM ONE (15:00)
[2016-10-18] MEDS ORDERED: HYDR-3801 PO (15:02)
[2016-10-18] MEDS ORDERED: hydrALAZINE HCL 20 MG/ML VIAL IV PUSH ONE (15:15)
[2016-10-18 15:16] LABS: AUTOMATED NEUTROPHIL # 3.6 TH/MM3 (1.8-7.7); BASOPHIL # 0.1 TH/MM3 (0-0.2); EOSINOPHIL # 0.2 TH/MM3 (0-0.4); HEMATOCRIT 34.9 % (35.0-46.0); HEMO FLAGS DIFF FINAL; LYMPH % 32.4 % (9.0-44.0); LYMPHOCYTE # 2.3 TH/MM3 (1.0-4.8); MEAN CELL VOLUME 77.5 FL (80.0-100.0); MEAN CORPUSCULAR HEMOGLOBIN 25.3 PG (27.0-34.0); MEAN CORPUSCULAR HGB CONC 32.6 % (32.0-36.0); MONO % 13.8 % (0.0-8.0); NEUT % 49.8 % (16.0-70.0); PLATELET COUNT 287 TH/MM3 (150-450); RED CELL DISTRIBUTION WIDTH 19.8 % (11.6-17.2); WHITE BLOOD COUNT 7.1 TH/MM3 (4.0-11.0)
[2016-10-18] MEDS ORDERED: PROCHLORPERAZINE INJ 10 MG/2 ML VIAL IV PUSH ONE (15:30)
--- NOTE | 2016-10-18 15:39 | PD ---
HPI Chief Complaint: Dizziness Time Seen by Provider: 15:00 Travel History International Travel<30 days: No Contact w/Intl Traveler<30days: No Traveled to known affect area: No History of Present Illness HPI Patient is a 51-year-old female presenting to the emergency department via EMS for evaluation of nausea, vomiting, dizziness. Patient states it started a few hours ago after taking her blood pressure medication. Patient reports feeling that the room is spinning. Patient has recently had her dose of hydralazine increased to 100 mg twice daily. She denies any chest pain, shortness of breath , fever, chills. Past medical history significant for asthma and hypertension. PFSH Past Medical History Asthma: Yes Cancer: No Cardiac Catheterization: No High Cholesterol: No Congestive Heart Failure: No Coronary Artery Disease: No Diabetes: No Diminished Hearing: No Endocrine: No Genitourinary: No Hypertension: Yes Immune Disorder: No Musculoskeletal: Yes (chronic back pain) Neurologic: No Psychiatric: No Reproductive: No Tetanus Vaccination: < 5 Years Influenza Vaccination: Yes ?: Unknown : 4 Para: 3 Miscarriage: 1 Past Surgical History Abdominal Surgery: Yes (LYSIS OF ADHESIONS) Section: Yes (X3) Social History Alcohol Use: No Tobacco Use: Yes Substance Use: No Allergies-Medications (Allergen,Severity, Reaction): Coded Allergies: No Known Allergies (Verified , 05/04/16) Reported Meds & Prescriptions Reported Meds & Active Scripts Active Nifedipine ER 24 HR (Nifedipine) 90 Mg Tab 90 Mg PO DAILY Labetalol (Labetalol HCl) 200 Mg Tab 200 Mg PO Q12HR Hydrochlorothiazide 25 Mg Tab 25 Mg PO DAILY Guaifenesin-Codeine Liq 100-10 Mg/5 Ml Soln 10 Ml PO Q6H PRN 14 Days Flexeril (Cyclobenzaprine HCl) 10 Mg Tab 10 Mg PO Q8HR PRN Lisinopril 40 Mg Tab 40 Mg PO DAILY Reported Hydralazine (Hydralazine HCl) 100 Mg Tab 100 Mg PO BID Take with meals Lortab (Hydrocodone-Acetaminophen) 5-325 Mg Tab 1 Tab PO Q6H PRN Aspirin 81 Mg Chew 81 Mg CHEW DAILY Proventil Hfa 6.7 GM Inh (Albuterol Sulfate) 90 Mcg/Act Aer 2 Puff INH Q4-6H PRN Review of Systems Except as stated in HPI: all other systems reviewed are Neg General / Constitutional: No: Fever, Chills Eyes: No: Blurred Vision HENT: No: Headaches Cardiovascular: No: Chest Pain or Discomfort Respiratory: No: Shortness of Breath Gastrointestinal: Positive: Nausea, Vomiting, No: Abdominal Pain Neurologic: Positive: Dizziness Physical Exam Narrative GENERAL: Morbidly obese, well-developed female. Appears uncomfortable, in no acute distress. SKIN: Warm and dry. HEAD: Atraumatic. Normocephalic. EYES: Pupils equal and round. No scleral icterus. No injection or drainage. ENT: No nasal bleeding or discharge. Mucous membranes pink and moist. NECK: Trachea midline. No JVD. CARDIOVASCULAR: Regular rate and rhythm. RESPIRATORY: No accessory muscle use. Clear to auscultation. Breath sounds equal bilaterally. GASTROINTESTINAL: Abdomen obese, soft, non-tender, nondistended. Hepatic and splenic margins not palpable. MUSCULOSKELETAL: Extremities without clubbing, cyanosis, or edema. No obvious deformities. NEUROLOGICAL: Awake and alert. No obvious cranial nerve deficits. Motor grossly within normal limits. Five out of 5 muscle strength in the arms and legs. Normal speech. PSYCHIATRIC: Appropriate mood and affect; insight and judgment normal. Data Data Last Documented VS Vital Signs Date Time Temp Pulse Resp B/P Pulse Ox O2 Delivery O2 Flow Rate FiO2 10/18/16 17:43 92 20 181/89 10/18/16 16:54 98 10/18/16 14:47 Room Air 10/18/16 14:40 98.2 Orders Electrocardiogram (10/18/16 14:55) Complete Blood Count With Diff (10/18/16 14:55) Comprehensive Metabolic Panel (10/18/16 14:55) Magnesium (Mg) (10/18/16 14:55) Ckmb (Isoenzyme) Profile (10/18/16 14:55) Troponin I (10/18/16 14:55) Chest, Single Ap (10/18/16 14:55) Ct Brain W/O Iv Contrast(Rout) (10/18/16 14:55) Ecg Monitoring (10/18/16 14:55) Iv Access Insert/Monitor (10/18/16 14:55) Oximetry (10/18/16 14:55) Sodium Chloride 0.9% Flush (Ns Flush) (10/18/16 15:00) Hydroxyzine Hcl Inj (Vistaril Inj) (10/18/16 15:00) Hydralazine Inj (Apresoline Inj) (10/18/16 15:15) Prochlorperazine Inj (Compazine Inj) (10/18/16 15:30) Metoprolol Tartrate Inj (Lopressor Inj) (10/18/16 15:45) Labetalol Inj (Trandate Inj) (10/18/16 16:30) Nicardipine Inj (Cardene Inj) (10/18/16 17:30) Admit Order (Ed Use Only) (10/18/16 17:41) Labs Laboratory Tests Test 10/18/16 15:05 White Blood Count 7.1 TH/MM3 Red Blood Count 4.50 MIL/MM3 Hemoglobin 11.4 GM/DL Hematocrit 34.9 % Mean Corpuscular Volume 77.5 FL Mean Corpuscular Hemoglobin 25.3 PG Mean Corpuscular Hemoglobin 32.6 % Concent Red Cell Distribution Width 19.8 % Platelet Count 287 TH/MM3 Mean Platelet Volume 7.4 FL Neutrophils (%) (Auto) 49.8 % Lymphocytes (%) (Auto) 32.4 % Monocytes (%) (Auto) 13.8 % Eosinophils (%) (Auto) 3.0 % Basophils (%) (Auto) 1.0 % Neutrophils # (Auto) 3.6 TH/MM3 Lymphocytes # (Auto) 2.3 TH/MM3 Monocytes # (Auto) 1.0 TH/MM3 Eosinophils # (Auto) 0.2 TH/MM3 Basophils # (Auto) 0.1 TH/MM3 CBC Comment DIFF FINAL Differential Comment Sodium Level 139 MEQ/L Potassium Level 3.8 MEQ/L Chloride Level 106 MEQ/L Carbon Dioxide Level 20.2 MEQ/L Anion Gap 13 MEQ/L Blood Urea Nitrogen 19 MG/DL Creatinine 1.04 MG/DL Estimat Glomerular Filtration 68 ML/MIN Rate Random Glucose 114 MG/DL Calcium Level 8.6 MG/DL Magnesium Level 2.2 MG/DL Total Bilirubin 0.3 MG/DL Aspartate Amino Transf 19 U/L (AST/SGOT) Alanine Aminotransferase 19 U/L (ALT/SGPT) Alkaline Phosphatase 105 U/L Total Creatine Kinase 93 U/L Troponin I LESS THAN 0.02 NG/ML Total Protein 8.1 GM/DL Albumin 3.4 GM/DL MDM Medical Decision Making Medical Screen Exam Complete: Yes Emergency Medical Condition: Yes Medical Record Reviewed: Yes Interpretation(s) Vital Signs Date Time Temp Pulse Resp B/P Pulse Ox O2 Delivery O2 Flow Rate FiO2 10/18/16 17:43 92 20 181/89 10/18/16 17:16 89 221/129 10/18/16 16:54 89 24 196/109 98 10/18/16 16:29 105 212/121 10/18/16 15:42 96 10/18/16 15:41 115 195/116 10/18/16 14:47 98 Room Air 10/18/16 14:40 98.2 110 30 Vital Signs Date Time Temp Pulse Resp B/P Pulse Ox O2 Delivery O2 Flow Rate FiO2 10/18/16 14:47 98 Room Air 10/18/16 14:40 98.2 110 30 Differential Diagnosis Malignant hypertension versus vertigo versus gastroenteritis versus other Narrative Course Patient is a 51-year-old female that presented to the emergency department via EMS for evaluation of dizziness, nausea, vomiting. Patient's symptoms started this morning after she took her hydralazine. On arrival, patient's blood pressure was markedly elevated. Labs and imaging were ordered. Hydralazine 20 mg IV 1 dose was ordered. Patient had no response to the hydralazine, BP continued to be elevated. Patient received Lopressor 5 mg IV 1 dose again with no improvement, labetalol 20 mg IV 1 dose was ordered and given and patient continued to be significantly hypertensive. At that time a Cardene drip was ordered. CBC with no acute findings Chemistry with a slight elevation of BUN/creatinine, troponin is less than 0.02 Chest x-ray shows advanced cardiomegaly, which is stable from the prior exam. CT of the brain with no acute bleed or infarct. There is an area of decreased attenuation probably representing encephalomalacia in the left cerebellar hemisphere. MRI can be done for more definitive assessment. Discussed with my attending. Hypertension continued to be uncontrolled requiring Cardene drip, pt will be admitted. Discussed with Dr. Maldonado who accepted admission. Orders placed. Diagnosis Primary Impression: Malignant hypertension Additional Impressions: Acute renal insufficiency Cardiomegaly Dizziness Admitting Information Admitting Physician Requests: Admit Condition: Stable Maryanne Toussaint [facility] Oct 18, 2016 15:39
[2016-10-18 15:42] LABS: ALT (GPT) 19 U/L (10-53)
[2016-10-18] MEDS ORDERED: METOPROLOL TARTRATE 5 MG/5 ML VIAL IV PUSH ONE (15:45)
[2016-10-18 15:48] LABS: CHLORIDE 106 MEQ/L (98-107); POTASSIUM 3.8 MEQ/L (3.5-5.1); SODIUM (NA) 139 MEQ/L (136-145)
[2016-10-18 15:52] LABS: ALKALINE PHOSPHATASE 105 U/L (45-117); ANION GAP 13 MEQ/L (5-15); BICARBONATE 20.2 MEQ/L (21.0-32.0); BLOOD UREA NITROGEN 19 MG/DL (7-18); GLOMERULAR FILTRATION RATE 68 ML/MIN (>89); MAGNESIUM 2.2 MG/DL (1.5-2.5); TOTAL BILIRUBIN ADULT 0.3 MG/DL (0.2-1.0)
[2016-10-18 16:00] LABS: AST (GOT) 19 U/L (15-37); CREATINE KINASE 93 U/L (26-192)
[2016-10-18] MEDS ORDERED: LABETALOL HCL 100 MG/20 ML VIAL IV PUSH ONE (16:30)
--- NOTE | 2016-10-18 16:52 | RADRPT ---
EXAM DATE/TIME: 10/18/2016 16:30 [facility] COMPARISON: CT BRAIN W/O CONTRAST, May 04, 2016, 23:58. INDICATIONS : Evaluate for dizziness with vomiting. RADIATION DOSE: 56.35 CTDIvol (mGy) MEDICAL HISTORY : Cardiovascular disease. Hypertension. SURGICAL HISTORY : None. ENCOUNTER: Initial ACUITY: 1 day PAIN SCALE: 8/10 LOCATION: Bilateral cranial TECHNIQUE: Multiple contiguous axial images were obtained of the head. Using automated exposure control and adj ustment of the mA and/or kV according to patient size, radiation dose was kept as low as reasonably a chievable to obtain optimal diagnostic quality images. DICOM format image data is available electro nically for review and comparison. FINDINGS: CEREBRUM: The ventricles are normal for age. No evidence of midline shift, mass lesion, hemorrhage or acute in farction. No extra-axial fluid collections are seen. POSTERIOR FOSSA: The examination demonstrates an area of decreased attenuation in the left cerebellar hemisphere proba igor representing encephalomalacia however, further workup with MRI would be warranted. EXTRACRANIAL: The visualized portion of the orbits is intact. SKULL: The calvaria is intact. No evidence of skull fracture. CONCLUSION: There is an area decrease attenuation probably representing encephalomalacia in the left cerebellar h emisphere. MRI imaging for more definitive assessment would be warranted. Tello Bansal MD on October 18, 2016 at 16:48 Board Certified Radiologist. This report was verified electronically.
--- NOTE | 2016-10-18 16:53 | RADRPT ---
EXAM DATE/TIME: 10/18/2016 15:07 [facility] COMPARISON: CHEST SINGLE AP, May 04, 2016, 16:30. INDICATIONS : Shortness of breath, dizziness, and palpitations. MEDICAL HISTORY : Hypertension. SURGICAL HISTORY : None. ENCOUNTER: Initial ACUITY: 1 day PAIN SCORE: 0/10 LOCATION: Bilateral chest FINDINGS: The heart is enlarged. This is similar in size to previous exam. The lungs are clear. The visualized bony structures demonstrate degenerative changes in the shoulders but are otherwise intact. CONCLUSION: 1. Advanced cardiomegaly. Stable compared to previous exam. Tello Bansal MD on October 18, 2016 at 16:51 Board Certified Radiologist. This report was verified electronically.
[2016-10-18] MEDS ORDERED: niCARdipine INJ 25 MG in SODIUM CHLOR 0.9% 250 ML INJ 250 ML IV ONE (17:30)
[2016-10-18] MEDS ORDERED: SODIUM CHLORIDE 0.9% FLUSH 10 ML FLUSH IV FLUSH PRN (18:00)
[2016-10-18] MEDS ORDERED: ACETAMINOPHEN 325 MG TAB PO PRN (18:00)
[2016-10-18] MEDS ORDERED: MAGNESIUM HYDROXIDE SUSP 30 ML CUP PO PRN (18:00)
[2016-10-18] MEDS ORDERED: ONDANSETRON HCL 4 MG/2 ML VIAL IVP PRN (18:00)
[2016-10-18] MEDS ORDERED: NALOXONE HCL 0.4 MG/ML AMP IV PRN (18:00)
--- NOTE | 2016-10-18 18:17 | HHI.HP ---
[facility] Unknown Admission Diagnosis Malignant hypertension Diagnoses: (1) Hypertensive emergency (2) Noncompliance with medication regimen Chief Complaint: Dizziness Travel History International Travel<30 Days: No Contact w/Intl Traveler <30 Da: No Traveled to Known Affected Are: No History of Present Illness Year-old -[place] female with a history of hypertension, noncompliance with medical care presented to the emergency department with an acute onset of dizziness and shortness of breath as well as nausea without any emesis. Patient was found to have elevated BP. States she was prescribed hydralazine twice a day but a week ago by her PCP secondary to poorly controlled blood pressure. She currently denies any chest pain or heart palpitation. She has no GI bleed. Review of Systems Except as stated in HPI: all other systems reviewed are Neg Past Family Social History Past Medical History Hypertension with medication noncompliance Asthma Obesity Chronic back pain . Past Surgical History 3 C-sections Laparoscopic lysis adhesions Reported Medications Nifedipine ER 24 HR (Nifedipine) 90 Mg Tab 90 Mg PO DAILY Labetalol (Labetalol HCl) 200 Mg Tab 200 Mg PO Q12HR Hydrochlorothiazide 25 Mg Tab 25 Mg PO DAILY Guaifenesin-Codeine Liq 100-10 Mg/5 Ml Soln 10 Ml PO Q6H PRN 14 Days Flexeril (Cyclobenzaprine HCl) 10 Mg Tab 10 Mg PO Q8HR PRN Lisinopril 40 Mg Tab 40 Mg PO DAILY Hydralazine (Hydralazine HCl) 100 Mg Tab 100 Mg PO BID Take with meals Lortab (Hydrocodone-Acetaminophen) 5-325 Mg Tab 1 Tab PO Q6H PRN Aspirin 81 Mg Chew 81 Mg CHEW DAILY Proventil Hfa 6.7 GM Inh (Albuterol Sulfate) 90 Mcg/Act Aer 2 Puff INH Q4-6H PRN Allergies: Coded Allergies: No Known Allergies (Verified , 05/04/16) Family History Family History positive for hypertension Social History Tobacco: Quit smoking April 2014, smoked for years Alcohol: Occasional - twice weekly; about four beers or two cups of hard liquor Illicit Drugs: Denied Physical Exam Vital Signs Vital Signs Date Time Temp Pulse Resp B/P Pulse Ox O2 Delivery O2 Flow Rate FiO2 10/18/16 18:02 100 199/119 10/18/16 17:43 92 20 181/89 10/18/16 17:16 89 221/129 10/18/16 16:54 89 24 196/109 98 10/18/16 16:29 105 212/121 10/18/16 15:42 96 10/18/16 15:41 115 195/116 10/18/16 14:47 98 Room Air 10/18/16 14:40 98.2 110 30 Physical Exam GENERAL: This is a well-nourished, well-developed patient, in no apparent distress. SKIN: No rashes, ecchymoses or lesions. Cool and dry. HEAD: Atraumatic. Normocephalic. No temporal or scalp tenderness. EYES: Pupils equal round and reactive. Extraocular motions intact. No scleral icterus. No injection or drainage. ENT: Nose without bleeding, purulent drainage or septal hematoma. Throat without erythema, tonsillar hypertrophy or exudate. Uvula midline. Airway patent. NECK: Trachea midline. No JVD or lymphadenopathy. Supple, nontender, no meningeal signs. CARDIOVASCULAR: Regular rate and rhythm without murmurs, gallops, or rubs. RESPIRATORY: Clear to auscultation. Breath sounds equal bilaterally. No wheezes , rales, or rhonchi. GASTROINTESTINAL: Abdomen soft, non-tender, nondistended. No hepato-splenomegaly , or palpable masses. No guarding. MUSCULOSKELETAL: Extremities without clubbing, cyanosis, or edema. No joint tenderness, effusion, or edema noted. No calf tenderness. Negative Homans sign bilaterally. NEUROLOGICAL: Awake and alert. Cranial nerves II through XII intact. Motor and sensory grossly within normal limits. Five out of 5 muscle strength in all muscle groups. Normal speech. Laboratory Laboratory Tests Test 10/18/16 15:05 White Blood Count 7.1 Red Blood Count 4.50 Hemoglobin 11.4 Hematocrit 34.9 Mean Corpuscular Volume 77.5 Mean Corpuscular Hemoglobin 25.3 Mean Corpuscular Hemoglobin 32.6 Concent Red Cell Distribution Width 19.8 Platelet Count 287 Mean Platelet Volume 7.4 Neutrophils (%) (Auto) 49.8 Lymphocytes (%) (Auto) 32.4 Monocytes (%) (Auto) 13.8 Eosinophils (%) (Auto) 3.0 Basophils (%) (Auto) 1.0 Neutrophils # (Auto) 3.6 Lymphocytes # (Auto) 2.3 Monocytes # (Auto) 1.0 Eosinophils # (Auto) 0.2 Basophils # (Auto) 0.1 CBC Comment DIFF FINAL Differential Comment Sodium Level 139 Potassium Level 3.8 Chloride Level 106 Carbon Dioxide Level 20.2 Anion Gap 13 Blood Urea Nitrogen 19 Creatinine 1.04 Estimat Glomerular Filtration 68 Rate Random Glucose 114 Calcium Level 8.6 Magnesium Level 2.2 Total Bilirubin 0.3 Aspartate Amino Transf 19 (AST/SGOT) Alanine Aminotransferase 19 (ALT/SGPT) Alkaline Phosphatase 105 Total Creatine Kinase 93 Troponin I LESS THAN 0.02 Total Protein 8.1 Albumin 3.4 Result Diagram: 10/18/16 1505 10/18/16 1505 Imaging Last Impressions Head CT 10/18/16 1455 Signed Impressions: Service Date/Time: Tuesday, October 18, 2016 16:30 - CONCLUSION: There is an area decrease attenuation probably representing encephalomalacia in the left cerebellar hemisphere. MRI imaging for more definitive assessment would be warranted. Tello Bansal MD Chest X-Ray 10/18/161454 Signed Impressions: Service Date/Time: Tuesday, October 18, 2016 15:07 - CONCLUSION: 1. Advanced cardiomegaly. Stable compared to previous exam. Tello Bansal MD Assessment and Plan Problem List: (1) Hypertensive emergency ICD Code: I16.1 Status: Acute Assessment and Plan 51-year-old female with Hypertensive emergency Start Cardene drip and admitted in ICU Check 2-D echo Head CT noted and reviewed by me with finding of There is an area decrease attenuation probably representing encephalomalacia in the left cerebellar hemisphere. Will check brain MRI Acute renal failure Gentle IV fluid hydration Monitor BUN and creatinine Impaired fasting glucose No known history of diabetes type 2, check hemoglobin A1c COPD No exacerbation, resume outpatient medications DVT prophylaxis Bilateral SCDs Code Status Full code Discussed Condition With Patient, ED PA Physician Certification 2 Midnight Certification Type: Admission for Inpatient Services Order for Inpatient Services The services are ordered in accordance with Medicare regulations or non- Medicare payer requirements, as applicable. In the case of services not specified as inpatient-only, they are appropriately provided as inpatient services in accordance with the 2-midnight benchmark. Estimated LOS (days): 2 days is the estimated time the patient will need to remain in the hospital, assuming treatment plan goals are met and no additional complications. Post-Hospital Plan: Not yet determined Mt Maldonado MD Oct 18, 2016 18:17
[2016-10-18] MEDS ORDERED: RESP: ALBUTEROL 2.5 MG/IPRATROPIUM 0.5 MG NEB (PRN) NEB (18:30)
[2016-10-18] MEDS: LABETALOL HCL 100 MG/20 ML VIAL IV PUSH PRN ×3 (19:45→23:32)
[2016-10-18] MEDS: hydrALAZINE HCL 20 MG/ML VIAL IV PUSH PRN ×2 (21:08→23:14)
[2016-10-18] MEDS: SODIUM CHLORIDE 0.9% FLUSH 10 ML FLUSH IV FLUSH SCH (21:08)
[2016-10-18] MEDS ORDERED: ATROPINE SULFATE 1 MG/10 ML SYRINGE ONE (21:21)
[2016-10-18] MEDS ORDERED: EPINEPHrine HCL (1:10,000) 1 MG/10 ML SYRINGE ONE (21:21)
--- NOTE | 2016-10-18 22:05 | EKG ---
Date Performed: 10/18/2016 Time Performed: 14:48:12 PTAGE: 51 years EKG: Sinus rhythm WITH SHORT DE INTERVAL POSSIBLE LEFT ATRIAL ENLARGEMENT BORDERLINE LEFT AXIS DEVIATION POSSIBLE LEFT VENTRICULAR HYPERTROPHY NONSPECIFIC T-WAVE ABNORMALITY ABNORMAL ECG Compared to prior tracing no sig nificant change DOCTOR: Torri Mathur Interpretating Date/Time 10/18/2016 22:04:08
--- NOTE | 2016-10-18 22:46 | RADRPT ---
EXAM DATE/TIME: 10/18/2016 21:48 [facility] COMPARISON: MRI BRAIN W/O CONTRAST, October 18, 2016, 21:48. CT BRAIN W/O CONTRAST, October 18, 2016, 16:30. EXTERNAL COMPARISON : [facility], CT Brain W/WO, July 08, 2016 INDICATIONS : Cephalgia. Evaluate for posterior circulation insufficiency. MEDICAL HISTORY : Hypertension. SURGICAL HISTORY : section. ENCOUNTER: Subsequent ACUITY: 1 day PAIN SCORE: 3/10 LOCATION: cranial Please note a normal MRA of the brain does not entirely exclude the possibility of a small aneurysm, nor the possibility of distal intracranial vessel disease. TECHNIQUE: 3D time of flight MRA was performed. Source images, multiplanar STS MIP, and 3D volume MIP reconstru ctions were reviewed. FINDINGS: There is excellent visualization of the major intracranial arteries out to the second-order branch ve ssels. Scattered atherosclerotic plaque throughout the intercavernous ICAs bilaterally without hemody namically significant stenosis. Persistent circulation bilaterally results in a small caliber b asilar artery. There is no evidence for aneurysm, vessel truncation or stenosis, and no evidence for vascular malformation. CONCLUSION: 1. No acute abnormality. Tito Cardoza Jr., MD on October 18, 2016 at 22:41 Board Certified Radiologist. This report was verified electronically.
--- NOTE | 2016-10-18 22:48 | RADRPT ---
EXAM DATE/TIME: 10/18/2016 21:48 [facility] COMPARISON: No previous studies available for comparison. EXTERNAL COMPARISON : [facility], CT Brain W/WO, July 08, 2016 INDICATIONS : Cephalgia. MEDICAL HISTORY : Hypertension. SURGICAL HISTORY : section. ENCOUNTER: Subsequent ACUITY: 1 day PAIN SCORE: 3/10 LOCATION: cranial TECHNIQUE: Multiplanar, multisequence MRI of the brain was performed without contrast. FINDINGS: CEREBRUM: The ventricles are normal for age. No evidence of midline shift, mass lesion, hemorrhage or acute in farction. No extraaxial fluid collections are seen. The pituitary gland and suprasellar cistern are normal in configuration. WHITE MATTER: No significant signal abnormalities are seen in the white matter. POSTERIOR FOSSA: A 1 cm focal area of encephalomalacia involving the left cerebellar hemisphere. The cerebellum and br ainstem are intact. The 4th ventricle is midline. The cerebellopontine angle is unremarkable. The c erebellar tonsils are normal in position. DIFFUSION IMAGING: No focal areas of restricted diffusion are seen. No evidence of acute infarction. EXTRACRANIAL: The visualized portions of the orbits and paranasal sinuses are unremarkable. CONCLUSION: 1. Focal area of encephalomalacia involving the left cerebellar hemisphere. 2. No acute intracranial abnormality. Tito Cardoza Jr., MD on October 18, 2016 at 22:44 Board Certified Radiologist. This report was verified electronically.
[2016-10-19] VITALS (13 sets, daily range): BP systolic 151–170; BP diastolic 86–108; PULSE 92–104; RESP 16–20; TEMP 98.1–98.6; O2SAT 94–97
[2016-10-19] MEDS: LABETALOL HCL 100 MG/20 ML VIAL IV PUSH PRN ×3 (03:09→15:21)
[2016-10-19] MEDS: niCARdipine INJ 25 MG in SODIUM CHLOR 0.9% 250 ML INJ 250 ML IV SCH ×2 (05:21→05:22)
[2016-10-19 06:23] LABS: HDL CHOLESTEROL 88.4 MG/DL (40.0-60.0); LDL CHOLESTEROL 85 MG/DL (0-99)
[2016-10-19] MEDS: SODIUM CHLORIDE 0.9% FLUSH 10 ML FLUSH IV FLUSH SCH ×2 (08:20→21:25)
[2016-10-19] MEDS: LABETALOL HCL 200 MG TAB PO SCH ×2 (08:20→21:24)
[2016-10-19] MEDS: hydrALAZINE HCL 100 MG TAB PO SCH ×2 (08:56→21:24)
--- NOTE | 2016-10-19 09:18 | HHI.PR ---
Subjective Remarks Follow-up hypertensive emergency 10/19/16-patient seen and examined, reports significant improvement of headache , nausea and shortness of breath. BP improved. Objective Vitals Vital Signs Date Time Temp Pulse Resp B/P Pulse Ox O2 Delivery O2 Flow Rate FiO2 10/19/16 08:22 95 Nasal Cannula 2.00 10/19/16 07:44 95 Nasal Cannula 2.00 10/19/16 07:43 98.1 104 18 170/108 95 10/19/16 07:00 104 10/19/16 03:00 96 Nasal Cannula 2.00 10/19/16 03:00 98.4 99 16 167/99 95 10/19/16 03:00 99 10/18/16 23:00 98.4 107 18 187/102 97 10/18/16 23:00 95 Nasal Cannula 2.00 10/18/16 23:00 107 10/18/16 22:32 Nasal Cannula 2.00 10/18/16 19:30 97 Nasal Cannula 2.00 10/18/16 19:15 98.0 108 24 187/107 94 10/18/16 19:15 94 Room Air 10/18/16 19:00 108 10/18/16 18:40 105 174/86 10/18/16 18:27 101 196/119 10/18/16 18:16 98 207/118 10/18/16 18:02 100 199/119 10/18/16 17:43 92 20 181/89 10/18/16 17:16 89 221/129 10/18/16 16:54 89 24 196/109 98 10/18/16 16:29 105 212/121 10/18/16 15:42 96 10/18/16 15:41 115 195/116 10/18/16 14:47 98 Room Air 10/18/16 14:40 98.2 110 30 I/O 10/18/16 10/18/16 10/18/16 10/19/16 10/19/16 10/19/16 07:00 15:00 23:00 07:00 15:00 23:00 Intake Total 1980 ml Output Total 600 ml Balance 1380 ml Intake Oral 1200 ml IV Total 780 ml Output Urine Total 600 ml # Bowel Movements 0 Result Diagram: 10/18/16 1505 10/18/16 1505 Imaging Last Impressions Head CT 10/18/16 1455 Signed Impressions: Service Date/Time: Tuesday, October 18, 2016 16:30 - CONCLUSION: There is an area decrease attenuation probably representing encephalomalacia in the left cerebellar hemisphere. MRI imaging for more definitive assessment would be warranted. Tello Bansal MD Chest X-Ray 10/18/16 1455 Signed Impressions: Service Date/Time: Tuesday, October 18, 2016 15:07 - CONCLUSION: 1. Advanced cardiomegaly. Stable compared to previous exam. Tello Bansal MD Head Magnetic Resonance Angiography 10/18/16 0000 Signed Impressions: Service Date/Time: Tuesday, October 18, 2016 21:48 - CONCLUSION: 1. No acute abnormality. Tito Cardoza Jr., MD Brain MRI 10/18/16 0000 Signed Impressions: Service Date/Time: Tuesday, October 18, 2016 21:48 - CONCLUSION: 1. Focal area of encephalomalacia involving the left cerebellar hemisphere. 2. No acute intracranial abnormality. Tito Cardoza Jr., MD Objective Remarks GENERAL: NAD SKIN: Warm and dry. HEAD: Normocephalic. EYES: No scleral icterus. No injection or drainage. NECK: Supple, trachea midline. No JVD or lymphadenopathy. CARDIOVASCULAR: Regular rate and rhythm without murmurs, gallops, or rubs. RESPIRATORY: Breath sounds equal bilaterally. No accessory muscle use. GASTROINTESTINAL: Abdomen soft, non-tender, nondistended. MUSCULOSKELETAL: No cyanosis, or edema. BACK: Nontender without obvious deformity. No CVA tenderness. A/P Problem List: (1) Hypertensive emergency ICD Code: I16.1 Status: Acute (2) HTN (hypertension) ICD Code: I10 Status: Chronic Assessment and Plan 51-year-old female with Hypertensive emergency-resolved D/C Cardene drip 2-D echo pending Head CT with finding of There is an area decrease attenuation probably representing encephalomalacia in the left cerebellar hemisphere. brain MRI brain MRI with finding of encephalomalacia left cerebellar hemisphere otherwise no acute intracranial abnormality Hypertension Resume home medication including labetalol 200 mg twice a day and hydralazine 100 mg twice a day Acute renal failure Gentle IV fluid hydration Monitor BUN and creatinine Impaired fasting glucose No known history of diabetes type 2, hemoglobin A1c pending COPD No exacerbation, continue outpatient medications DVT prophylaxis Bilateral SCDs Transfer to med/surge benson Pontey,Mt MD Oct 19, 2016 09:18
[2016-10-19] MEDS: ACETAMINOPHEN 325 MG TAB PO PRN ×2 (14:44→21:24)
[2016-10-19 16:54] LABS: HEMOGLOBIN A1a 0.9 %; HEMOGLOBIN A1b 1.6 %; HEMOGLOBIN LA1C 1.9 %; HEMOGLOBIN P3 5.2 %
[2016-10-20] VITALS (8 sets, daily range): BP systolic 138–178; BP diastolic 77–104; PULSE 104–106; RESP 20; TEMP 97.4–98.4; O2SAT 96–99
[2016-10-20] MEDS: SODIUM CHLORIDE 0.9% FLUSH 10 ML FLUSH IV FLUSH SCH (08:22)
[2016-10-20] MEDS: hydrALAZINE HCL 100 MG TAB PO SCH (08:22)
[2016-10-20] MEDS: LABETALOL HCL 200 MG TAB PO SCH (08:23)
--- NOTE | 2016-10-20 09:04 | HHI.PR ---
Subjective Remarks Follow-up hypertensive emergency 10/19/16-patient seen and examined, reports significant improvement of headache , nausea and shortness of breath. BP improved. 10/20/16-patient seen and examined, denies any shortness of breath or chest pain. Only complain of mild headaches. BP improving Objective Vitals Vital Signs Date Time Temp Pulse Resp B/P Pulse Ox O2 Delivery O2 Flow Rate FiO2 10/20/16 08:00 98.4 106 20 176/104 97 10/20/16 05:14 97.4 104 20 168/78 98 10/20/16 03:00 Room Air 10/20/16 00:51 166/77 10/20/16 00:38 98.1 104 20 178/86 96 10/19/16 23:00 Room Air 10/19/16 20:00 100 10/19/16 20:00 98.2 103 18 151/86 97 10/19/16 19:34 97 21 10/19/16 19:00 Room Air 10/19/16 17:00 98.1 99 20 157/96 97 10/19/16 16:30 95 21 10/19/16 15:44 22 10/19/16 15:36 96 Room Air 10/19/16 15:35 98.5 92 20 162/86 95 10/19/16 15:00 92 10/19/16 11:09 95 Room Air 10/19/16 11:08 98.6 101 20 156/88 94 10/19/16 11:00 101 I/O 10/19/16 10/19/16 10/19/16 10/20/16 10/20/16 10/20/16 07:00 15:00 23:00 07:00 15:00 23:00 Intake Total 1980 ml 1320 ml 480 ml Output Total 600 ml 750 ml Balance 1380 ml 570 ml 480 ml Intake Oral 1200 ml 1320 ml 480 ml IV Total 780 ml 0 ml Output Urine Total 600 ml 750 ml # Voids 0 # Bowel Movements 0 0 0 Result Diagram: 10/18/16 1505 10/18/16 1505 Imaging Last Impressions Head CT 10/18/16 1058 Signed Impressions: Service Date/Time: Tuesday, October 18, 2016 16:30 - CONCLUSION: There is an area decrease attenuation probably representing encephalomalacia in the left cerebellar hemisphere. MRI imaging for more definitive assessment would be warranted. Tello Bansal MD Chest X-Ray 10/18/16 1455 Signed Impressions: Service Date/Time: Tuesday, October 18, 2016 15:07 - CONCLUSION: 1. Advanced cardiomegaly. Stable compared to previous exam. Tello Bansal MD Head Magnetic Resonance Angiography 10/18/16 0000 Signed Impressions: Service Date/Time: Tuesday, October 18, 2016 21:48 - CONCLUSION: 1. No acute abnormality. Tito Cardoza Jr., MD Brain MRI 10/18/16 0000 Signed Impressions: Service Date/Time: Tuesday, October 18, 2016 21:48 - CONCLUSION: 1. Focal area of encephalomalacia involving the left cerebellar hemisphere. 2. No acute intracranial abnormality. Tito Cardoza Jr., MD Objective Remarks GENERAL: NAD SKIN: Warm and dry. HEAD: Normocephalic. EYES: No scleral icterus. No injection or drainage. NECK: Supple, trachea midline. No JVD or lymphadenopathy. CARDIOVASCULAR: Regular rate and rhythm without murmurs, gallops, or rubs. RESPIRATORY: Breath sounds equal bilaterally. No accessory muscle use. GASTROINTESTINAL: Abdomen soft, non-tender, nondistended. MUSCULOSKELETAL: No cyanosis, or edema. BACK: Nontender without obvious deformity. No CVA tenderness. Procedures none A/P Problem List: (1) Hypertensive emergency ICD Code: I16.1 Status: Resolved (2) HTN (hypertension) ICD Code: I10 Status: Chronic Assessment and Plan 51-year-old female with Hypertensive emergency-resolved s/p Cardene drip 2-D echo pending Head CT with finding of There is an area decrease attenuation probably representing encephalomalacia in the left cerebellar hemisphere. brain MRI brain MRI with finding of encephalomalacia left cerebellar hemisphere otherwise no acute intracranial abnormality Hypertension Continue home medication including labetalol 200 mg twice a day and hydralazine 100 mg twice a day Acute renal failure Gentle IV fluid hydration Monitor BUN and creatinine BMP pending this morning Impaired fasting glucose No known history of diabetes type 2, hemoglobin A1c 5.4 COPD No exacerbation, continue outpatient medications DVT prophylaxis Bilateral SCDs Mt Maldonado MD Oct 20, 2016 09:04
[2016-10-20] MEDS ORDERED: LABE200T2 PO (09:07)
[2016-10-20] MEDS ORDERED: HYDR-3801 PO (09:07)
--- NOTE | 2016-10-20 09:09 | HHI.DS ---
Discharge Summary Admission Date Oct 18, 2016 at 17:44 Discharge Date: Oct 20, 2016 Admitting Diagnosis Malignant hypertension (1) Hypertensive emergency ICD Code: I16.1 (2) HTN (hypertension) ICD Code: I10 Procedures none Brief History - From Admission Year-old -[place] female with a history of hypertension, noncompliance with medical care presented to the emergency department with an acute onset of dizziness and shortness of breath as well as nausea without any emesis. Patient was found to have elevated BP. States she was prescribed hydralazine twice a day but a week ago by her PCP secondary to poorly controlled blood pressure. She currently denies any chest pain or heart palpitation. She has no GI bleed. CBC/BMP: 10/18/16 1505 10/18/16 1505 Significant Findings Laboratory Tests Test 10/18/16 10/19/16 15:05 05:17 Hemoglobin 11.4 GM/DL (11.6-15.3) Hematocrit 34.9 % (35.0-46.0) Mean Corpuscular Volume 77.5 FL (80.0-100.0) Mean Corpuscular Hemoglobin 25.3 PG (27.0-34.0) Red Cell Distribution Width 19.8 % (11.6-17.2) Monocytes (%) (Auto) 13.8 % (0.0-8.0) Monocytes # (Auto) 1.0 TH/MM3 (0-0.9) Carbon Dioxide Level 20.2 MEQ/L (21.0-32.0) Blood Urea Nitrogen 19 MG/DL (7-18) Creatinine 1.04 MG/DL (0.50-1.00) Estimat Glomerular Filtration 68 ML/MIN (>89) Rate Random Glucose 114 MG/DL (74-106) Troponin I LESS THAN 0.02 NG/ML (0.02-0.05) HDL Cholesterol 88.4 MG/DL (40.0-60.0) Imaging Last Impressions Head CT 10/18/16 1455 Signed Impressions: Service Date/Time: Tuesday, October 18, 2016 16:30 - CONCLUSION: There is an area decrease attenuation probably representing encephalomalacia in the left cerebellar hemisphere. MRI imaging for more definitive assessment would be warranted. Tello Bansal MD Chest X-Ray 10/18/16 1455 Signed Impressions: Service Date/Time: Tuesday, October 18, 2016 15:07 - CONCLUSION: 1. Advanced cardiomegaly. Stable compared to previous exam. Tello Bansal MD Head Magnetic Resonance Angiography 10/18/16 0000 Signed Impressions: Service Date/Time: Tuesday, October 18, 2016 21:48 - CONCLUSION: 1. No acute abnormality. Tito Cardoza Jr., MD Brain MRI 10/18/16 0000 Signed Impressions: Service Date/Time: Tuesday, October 18, 2016 21:48 - CONCLUSION: 1. Focal area of encephalomalacia involving the left cerebellar hemisphere. 2. No acute intracranial abnormality. Tito Cardoza Jr., MD PE at Discharge GENERAL: NAD SKIN: Warm and dry. HEAD: Normocephalic. EYES: No scleral icterus. No injection or drainage. NECK: Supple, trachea midline. No JVD or lymphadenopathy. CARDIOVASCULAR: Regular rate and rhythm without murmurs, gallops, or rubs. RESPIRATORY: Breath sounds equal bilaterally. No accessory muscle use. GASTROINTESTINAL: Abdomen soft, non-tender, nondistended. MUSCULOSKELETAL: No cyanosis, or edema. BACK: Nontender without obvious deformity. No CVA tenderness. Hospital Course Patient admitted secondary to hypertensive emergency/she was started on Cardene drip with monitoring ICU. Blood pressure subsequently improved and patient straight to oral antihypertensive medications with were adjusted accordingly. PT and GI prophylaxis were provided. Prior to discharge, patient's vitals remained stable and her conditions improved Pt Condition on Discharge: Stable Discharge Disposition: Discharge Home Discharge Time: <= 30 minutes Discharge Instructions DIET: Follow Instructions for: Heart Healthy Diet Activities you can perform: Regular-No Restrictions Follow up Referrals: PCP Follow-up - 1 Week New Medications: Hydralazine (Hydralazine) 100 Mg Tab 100 MG PO BID Blood Pressure Management #60 Ref 3 TAB Labetalol (Labetalol) 200 Mg Tab 200 MG PO Q12HR Blood Pressure Management #60 Ref 3 TAB Continued Medications: Albuterol 6.7 GM Inh (Proventil Hfa 6.7 GM Inh) 90 Mcg/Act Aer 2 PUFF INH Q4-6H PRN SHORTNESS OF BREATH #1 Ref 0 INHALER Aspirin (Aspirin) 81 Mg Chew 81 MG CHEW DAILY Ref 0 TAB Lisinopril (Lisinopril) 40 Mg Tab 40 MG PO DAILY Blood Pressure Management #30 Ref 0 TAB Discontinued Medications: Cyclobenzaprine (Flexeril) 10 Mg Tab 10 MG PO Q8HR PRN Shoulder pain. #20 TAB Guaifenesin-Codeine Liq (Guaifenesin-Codeine Liq) 100-10 Mg/5 Ml Soln 10 ML PO Q6H PRN COUGH Days 14 ML Hydralazine (Hydralazine) 100 Mg Tab 100 MG PO BID Take with meals Blood Pressure Management Ref 0 TAB Hydrocodone-Acetaminophen (Lortab) 5-325 Mg Tab 1 TAB PO Q6H PRN PAIN Ref 0 TAB Mt Maldonado MD Oct 20, 2016 09:09
[2016-10-20 10:39] LABS: ALKALINE PHOSPHATASE 90 U/L (45-117); ALT (GPT) 23 U/L (10-53); ANION GAP 8 MEQ/L (5-15); AST (GOT) 50 U/L (15-37); BICARBONATE 21.7 MEQ/L (21.0-32.0); BLOOD UREA NITROGEN 17 MG/DL (7-18); CHLORIDE 105 MEQ/L (98-107); GLOMERULAR FILTRATION RATE 62 ML/MIN (>89); SODIUM (NA) 135 MEQ/L (136-145); TOTAL BILIRUBIN ADULT 0.6 MG/DL (0.2-1.0)
[2016-10-20 10:52] LABS: POTASSIUM 4.5 MEQ/L (3.5-5.1)
--- NOTE | 2016-10-20 11:58 | ECHRPT ---
Indication: Essential (primary) hypertension CONCLUSIONS Normal left ventricular size. Moderate concentric left ventricular hypertrophy. The left ventricular systolic function is low normal with an estimated ejection fraction in the rang e of 50- 55%. There is mild tricuspid valve regurgitation. The estimated pulmonary arterial pressure is 42 mmHg. BP: 170 / 108 HR: 104 Rhythm: Sinus MEASUREMENTS (Male / Female) Normal Values Technical Quality:Poor 2D ECHO LV Diastolic Diameter PLAX 4.6 cm 4.2 - 5.9 / 3.9 - 5.3 cm LV Systolic Diameter PLAX 3.9 cm IVS Diastolic Thickness 1.5 cm 0.6 - 1.0 / 0.6 - 0.9 cm LVPW Diastolic Thickness 1.6 cm 0.6 - 1.0 / 0.6 - 0.9 cm LV Relative Wall Thickness 0.7 LVOT Diameter 1.8 cm M-MODE Aortic Root Diameter MM 2.6 cm LA Systolic Diameter MM 3.3 cm LA Ao Ratio MM 1.3 AV Cusp Separation MM 2.0 cm DOPPLER AV Peak Velocity 197.0 cm/s AV Peak Gradient 15.5 mmHg LVOT Peak Velocity 123.0 cm/s LVOT Peak Gradient 6.1 mmHg AV Area Cont Eq pk 1.6 cm TR Peak Velocity 281.0 cm/s TR Peak Gradient 31.6 mmHg PV Peak Velocity 119.0 cm/s PV Peak Gradient 5.7 mmHg FINDINGS LEFT VENTRICLE Normal left ventricular size. Moderate concentric left ventricular hypertrophy. The left ventricular systolic function is low normal with an estimated ejection fraction in the rang e of 50- 55%. RIGHT VENTRICLE Normal right ventricular size and systolic function. LEFT ATRIUM The left atrial size is normal. RIGHT ATRIUM The right atrial size is normal. ATRIAL SEPTUM Normal atrial septal thickness without atrial level shunting by limited color doppler interrogation. AORTA The aortic root and proximal ascending aorta are normal in size on limited imaging. MITRAL VALVE Structurally normal mitral valve. No mitral valve stenosis or regurgitation. AORTIC VALVE Trileaflet aortic valve. No aortic valve stenosis or regurgitation. TRICUSPID VALVE There is mild tricuspid valve regurgitation. The estimated pulmonary arterial pressure is 42 mmHg. PULMONARY VALVE The pulmonary valve is not well visualized. VESSELS The inferior vena cava is normal in size. PERICARDIUM No pericardial effusion. Abdoul Tapia MD, FACC (Electronically Signed) Final Date:20 October 2016 11:57
== END 2016-10-20 14:35 | disposition home or self-care (01) | DRG 305 ==
LOC: NEPE 14:29 → NEDA 17:44 → HCVR 19:04 → N04B 10-19 16:56
PROVIDERS: ADMIT Hospitalist; ATTEND Hospitalist
DX: I16.1 Hypertensive emergency (principal); N17.9 Acute kidney failure, unspecified; Z68.42 Body mass index [BMI] 45.0-49.9, adult; E66.01 Morbid (severe) obesity due to excess calories; J45.909 Unspecified asthma, uncomplicated; G89.29 Other chronic pain; M54.9 Dorsalgia, unspecified; Z91.14 Patient's other noncompliance with medication regimen; Z87.891 Personal history of nicotine dependence; Z82.49 Family history of ischemic heart disease and other diseases of the circulatory system; J44.9 Chronic obstructive pulmonary disease, unspecified; R73.01 Impaired fasting glucose
CPT/HCPCS: 70450; 70544; 70551; 71010; 76937; 80053; 80061; 82550; 83036; 83735; 84484; 85025; 93005; 93306; 96374; 96375; J0171; J0360; J0461; J0780; J2405; J7050

== ENCOUNTER 2017-03-06 10:28 | Emergency (ER) | payer MEDICAID ==
[~2017-03-06] VITALS: Ht 157.5 cm; Wt 124.0 kg
[~2017-03-06 10:28] MED LIST changes: +ASPI-516 CHEW; -ASPI81CH CHEW; -CYCL1TAB29 PO; -GUAI100S5 PO; -HYDR-3533 PO; +HYDR-3801 PO
[2017-03-06 10:36] VITALS: BP 144/96; PULSE 122; RESP 16; TEMP 97.8; O2SAT 96
[2017-03-06 11:00] VITALS: BP 225/124; PULSE 104; RESP 16; O2SAT 96
[2017-03-06] MEDS ORDERED: LIDOCAINE 1%/EPINEPHrine 1:100,000 SOLN 20 ML VIAL INFIL ONE (11:15)
[2017-03-06] MEDS ORDERED: ONDANSETRON HCL 4 MG/2 ML VIAL IV PUSH ONE (11:15)
[2017-03-06] MEDS ORDERED: METOPROLOL TARTRATE 5 MG/5 ML VIAL IV PUSH ONE ×2 (11:15→13:00)
[2017-03-06] MEDS ORDERED: CLINDAMYCIN INJ 900 MG in SODIUM CHLORIDE 0.9% INJ 100 ML IV ONE (11:15)
[2017-03-06] MEDS ORDERED: SODIUM CHLORIDE 0.9% FLUSH 10 ML FLUSH IVF PRN (11:15)
[2017-03-06] MEDS ORDERED: MORPHINE SULFATE 4 MG/ML INJ IV PUSH ONE ×2 (11:15→14:00)
--- NOTE | 2017-03-06 11:28 | PD ---
HPI Chief Complaint: Skin Problem Time Seen by Provider: 11:06 Travel History International Travel<30 days: No Contact w/Intl Traveler<30days: No Traveled to known affect area: No History of Present Illness HPI Patient is a 52-year-old female presenting to the right arm for evaluation of right neck pain. Patient states it started 5 days ago after her daughter braided her hair too tight and she attempted to remove the brain. She states she's been applying heat but it continues to swell. She reports the pain is a 10 out of 10, she denies any fever, chills. She reports mild nausea, a cough and occasional shortness of breath. She denies any dysphasia, she is able to control her secretions. Patient is a history of hypertension, she did not take her blood pressure medications this morning. PFSH Past Medical History Asthma: Yes Hypertension: Yes Musculoskeletal: Yes (chronic back pain) Tetanus Vaccination: > 5 Years ?: Not LMP: IRREGULAR 02/2017 : 4 Para: 3 Miscarriage: 1 : 0 Past Surgical History Abdominal Surgery: Yes (LYSIS OF ADHESIONS) Section: Yes (X3) Social History Alcohol Use: No Tobacco Use: No Substance Use: No Allergies-Medications (Allergen,Severity, Reaction): Coded Allergies: No Known Allergies (Verified Adverse Reaction, Unknown, 03/06/17) Reported Meds & Prescriptions Reported Meds & Active Scripts Active Percocet (Oxycodone-Acetaminophen) 5-325 mg Tab 1 Tab PO Q4H PRN Clindamycin (Clindamycin HCl) 300 Mg Cap 300 Mg PO TID 10 Days Mupirocin Topical (Mupirocin) 2 % Oint 1 Applic TOPICAL BID Labetalol (Labetalol HCl) 200 Mg Tab 200 Mg PO Q12HR Hydrochlorothiazide 25 Mg Tab 25 Mg PO DAILY Lisinopril 40 Mg Tab 40 Mg PO DAILY Reported Aspirin 81 Mg Chew 81 Mg CHEW DAILY Review of Systems Except as stated in HPI: all other systems reviewed are Neg General / Constitutional: No: Fever, Chills HENT: Positive: Neck Pain, No: Headaches Cardiovascular: No: Chest Pain or Discomfort Respiratory: Positive: Cough, Shortness of Breath, No: Wheezing, Pleuritic Pain Gastrointestinal: Positive: Nausea, No: Vomiting, Diarrhea, Abdominal Pain Musculoskeletal: Positive: Myalgias Skin: Positive Lumps (right neck) Physical Exam Narrative GENERAL: Obese, alert, well-developed female. Resting comfortably, in no acute distress. SKIN: Warm and dry. 3 cm abscess to the right lateral neck. Tender to palpation, no erythema or exudate noted. HEAD: Atraumatic. Normocephalic. EYES: Pupils equal and round. No scleral icterus. No injection or drainage. ENT: No nasal bleeding or discharge. Mucous membranes pink and moist. Airway is patent. NECK: Trachea midline. No JVD. CARDIOVASCULAR: Regular rate and rhythm. RESPIRATORY: No accessory muscle use. Clear to auscultation. Breath sounds equal bilaterally. GASTROINTESTINAL: Abdomen soft, non-tender, nondistended. Hepatic and splenic margins not palpable. MUSCULOSKELETAL: Extremities without clubbing, cyanosis, or edema. No obvious deformities. NEUROLOGICAL: Awake and alert. No obvious cranial nerve deficits. Motor grossly within normal limits. Five out of 5 muscle strength in the arms and legs. Normal speech. PSYCHIATRIC: Appropriate mood and affect; insight and judgment normal. Data Data Last Documented VS Vital Signs Date Time Temp Pulse Resp B/P (MAP) Pulse Ox O2 Delivery O2 Flow Rate FiO2 03/06/17 14:52 86 16 186/100 (128) 100 Room Air 03/06/17 10:36 97.8 Orders Orders Basic Metabolic Panel (Bmp) (03/06/17 11:11) Complete Blood Count With Diff (03/06/17 11:11) Wound Culture And Gram Stain (03/06/17 11:11) Sodium Chloride 0.9% Flush (Ns Flush) (03/06/17 11:15) Clindamycin Inj (Cleocin Inj) (03/06/17 11:15) Lidocai-Epi 1%-1:100,000 Inj (Xylocaine- (03/06/17 11:15) Morphine Inj (Morphine Inj) (03/06/17 11:15) Ondansetron Inj (Zofran Inj) (03/06/17 11:15) Metoprolol Tartrate Inj (Lopressor Inj) (03/06/17 11:15) Soft Tissue Neck (03/06/17 ) Metoprolol Tartrate Inj (Lopressor Inj) (03/06/17 13:00) Morphine Inj (Morphine Inj) (03/06/17 14:00) Ed Discharge Order (03/06/17 14:51) Labs Laboratory Tests Test 03/06/17 11:25 White Blood Count 8.3 TH/MM3 Red Blood Count 4.12 MIL/MM3 Hemoglobin 9.1 GM/DL Hematocrit 29.0 % Mean Corpuscular Volume 70.4 FL Mean Corpuscular Hemoglobin 22.0 PG Mean Corpuscular Hemoglobin Concent 31.3 % Red Cell Distribution Width 21.3 % Platelet Count 264 TH/MM3 Mean Platelet Volume 7.5 FL Neutrophils (%) (Auto) 69.7 % Lymphocytes (%) (Auto) 17.9 % Monocytes (%) (Auto) 10.1 % Eosinophils (%) (Auto) 1.9 % Basophils (%) (Auto) 0.4 % Neutrophils # (Auto) 5.8 TH/MM3 Lymphocytes # (Auto) 1.5 TH/MM3 Monocytes # (Auto) 0.8 TH/MM3 Eosinophils # (Auto) 0.2 TH/MM3 Basophils # (Auto) 0.0 TH/MM3 CBC Comment DIFF FINAL Differential Comment Blood Urea Nitrogen 13 MG/DL Creatinine 0.91 MG/DL Random Glucose 93 MG/DL Calcium Level 8.5 MG/DL Sodium Level 139 MEQ/L Potassium Level 3.7 MEQ/L Chloride Level 107 MEQ/L Carbon Dioxide Level 25.8 MEQ/L Anion Gap 6 MEQ/L Estimat Glomerular Filtration Rate 79 ML/MIN MDM Medical Decision Making Medical Screen Exam Complete: Yes Emergency Medical Condition: Yes Interpretation(s) Laboratory Tests Test 03/06/17 11:25 White Blood Count 8.3 TH/MM3 Red Blood Count 4.12 MIL/MM3 Hemoglobin 9.1 GM/DL Hematocrit 29.0 % Mean Corpuscular Volume 70.4 FL Mean Corpuscular Hemoglobin 22.0 PG Mean Corpuscular Hemoglobin Concent 31.3 % Red Cell Distribution Width 21.3 % Platelet Count 264 TH/MM3 Mean Platelet Volume 7.5 FL Neutrophils (%) (Auto) 69.7 % Lymphocytes (%) (Auto) 17.9 % Monocytes (%) (Auto) 10.1 % Eosinophils (%) (Auto) 1.9 % Basophils (%) (Auto) 0.4 % Neutrophils # (Auto) 5.8 TH/MM3 Lymphocytes # (Auto) 1.5 TH/MM3 Monocytes # (Auto) 0.8 TH/MM3 Eosinophils # (Auto) 0.2 TH/MM3 Basophils # (Auto) 0.0 TH/MM3 CBC Comment DIFF FINAL Differential Comment Blood Urea Nitrogen 13 MG/DL Creatinine 0.91 MG/DL Random Glucose 93 MG/DL Calcium Level 8.5 MG/DL Sodium Level 139 MEQ/L Potassium Level 3.7 MEQ/L Chloride Level 107 MEQ/L Carbon Dioxide Level 25.8 MEQ/L Anion Gap 6 MEQ/L Estimat Glomerular Filtration Rate 79 ML/MIN Vital Signs Date Time Temp Pulse Resp B/P (MAP) Pulse Ox O2 Delivery O2 Flow Rate FiO2 03/06/17 10:36 97.8 122 16 144/96 (112 96 Differential Diagnosis Abscess versus cellulitis versus hypertension versus hypertensive emergency versus other Narrative Course Patient is a 52-year-old female presenting to emergency for evaluation of her right neck abscess that developed 5 days ago. Please see procedure report for I &D. Patient was hypertensive on arrival, she did not take metoprolol this morning. She was given morphine and Zofran for the pain. Low dose of IV Lopressor was ordered for blood pressure management. Wound culture obtained and pending. Patient was given IV clindamycin. Labs reviewed, no acute findings identified. Patient tolerated I&D well. BP remains hypertensive, Lopressor IV ordered. Patient advised not to skip doses to avoid rebound hypertension. An additional dose of morphine was given for pain as well. Patient's blood pressure was reassessed prior to discharge at 186/100. Patient was again advised to avoid skipping doses of her blood pressure medication and continue home medications as previously prescribed. She is resting comfortably, she reports improvement in her pain after I&D. Vital signs are otherwise stable. Patient was advised to return in 48 hours to have packing removed and for reevaluation. She was encouraged to take antibiotics as directed avoid skipping doses. She is advised to change dressing twice daily apply mupirocin ointment. She was encouraged return sooner for any new or worsening symptoms. Patient verbalized understanding of instructions. Patient is stable for discharge. Procedures Procedure Narrative After the risks and benefits were discussed the following procedure was performed: INCISION AND DRAINAGE OF ABSCESS: The area was prepped and was sterilely draped. A subcutaneous wheal of 1% Xylocaine with a total number 2 mL was used to anesthetize the area. The area was properly anesthetized. A number 11 scalpel was used to make a 1.5 -cm incision across the area of the abscess. Cultures were obtained. The abscess was drained an irrigated with normal saline. Quarter inch iodoform packing was placed in the wound. Sterile dressing applied. Patient advised to have packing removed in two days. Diagnosis Primary Impression: Abscess Additional Impressions: Encounter for incision and drainage procedure HTN (hypertension) Qualified Codes: I10 - Essential (primary) hypertension Referrals: Primary Care Physician 2 days Patient Instructions: Abscess (GEN), Abscess Follow-up (ED), Abscess Incision and Drainage (DC), General Instructions Additional Instructions: Return to emergency Department in 2 days to have packing removed and for reassessment Complete antibiotics as prescribed Apply mupirocin ointment twice daily, change dressing twice daily and as needed for soiling Take care when removing dressing to avoid pulling packing out of incision. Return to emergency department immediately for any new or worsening symptoms Take blood pressure medicine as scheduled to avoid rebound hypertension, do not skip doses. Med/Other Pt SpecificInfo: Prescription(s) given Scripts Oxycodone-Acetaminophen (Percocet) 5-325 mg Tab 1 TAB PO Q4H Y for PAIN, #10 TAB 0 Refills Prov: Maryanne Toussaint 03/06/17 Clindamycin (Clindamycin) 300 Mg Cap 300 MG PO TID for Infection for 10 Days, CAP 0 Refills Prov: Maryanne Toussaint 03/06/17 Mupirocin Topical (Mupirocin Topical) 2 % Oint 1 APPLIC TOPICAL BID for Mgmt Bacterial Infection, #22 GM 0 Refills Prov: Maryanne Toussaint 03/06/17 Disposition: 01 DISCHARGE HOME Condition: Stable Maryanne Toussaint Mar 06, 2017 11:28
[2017-03-06 11:38] LABS: AUTOMATED NEUTROPHIL # 5.8 TH/MM3 (1.8-7.7); BASOPHIL % 0.4 % (0.0-2.0); EOSINOPHIL # 0.2 TH/MM3 (0-0.4); EOSINOPHIL % 1.9 % (0.0-4.0); HEMO FLAGS DIFF FINAL; LYMPH % 17.9 % (9.0-44.0); LYMPHOCYTE # 1.5 TH/MM3 (1.0-4.8); MEAN CELL VOLUME 70.4 FL (80.0-100.0); MEAN CORPUSCULAR HGB CONC 31.3 % (32.0-36.0); MONO % 10.1 % (0.0-8.0); NEUT % 69.7 % (16.0-70.0); PLATELET COUNT 264 TH/MM3 (150-450); RED BLOOD COUNT 4.12 MIL/MM3 (4.00-5.30); RED CELL DISTRIBUTION WIDTH 21.3 % (11.6-17.2); WHITE BLOOD COUNT 8.3 TH/MM3 (4.0-11.0)
[2017-03-06 11:53] LABS: BICARBONATE 25.8 MEQ/L (21.0-32.0); POTASSIUM 3.7 MEQ/L (3.5-5.1)
[2017-03-06 12:15] VITALS: BP 187/94; PULSE 90; RESP 16; O2SAT 98
[2017-03-06] MEDS ORDERED: CLIN300C5 PO (12:37)
[2017-03-06] MEDS ORDERED: PERC5TAB12 PO (12:37)
[2017-03-06] MEDS ORDERED: MUPI2OIN TOPICAL (12:37)
--- NOTE | 2017-03-06 12:45 | RADRPT ---
EXAM DATE/TIME: 03/06/2017 11:34 [facility] COMPARISON: No previous studies available for comparison. INDICATIONS : Large boil with swelling and redness, lateral right neck, below and behind ear. MEDICAL HISTORY : None. SURGICAL HISTORY : None. ENCOUNTER: Initial ACUITY: 3 days PAIN SCORE: 10/10 LOCATION: Right soft tissue neck. FINDINGS: Large soft tissue mass right neck without air. CONCLUSION: Soft tissue mass, presumed abscess as described above. Tanvir Bansal MD FACR on March 06, 2017 at 12:42 Board Certified Radiologist. This report was verified electronically.
[2017-03-06 13:58] VITALS: BP 209/118; PULSE 98; RESP 20; O2SAT 96
[2017-03-06 14:15] VITALS: BP 212/110; PULSE 92; RESP 20; O2SAT 100
[2017-03-06 14:52] VITALS: BP 186/100; PULSE 86; RESP 16; O2SAT 100
== END 2017-03-06 15:20 | disposition home or self-care (01) ==
LOC: NEPE 10:28
DX: L02.11 Cutaneous abscess of neck (principal); A49.02 Methicillin resistant Staphylococcus aureus infection, unspecified site; R05 Cough; R11.0 Nausea; R06.02 Shortness of breath; J45.909 Unspecified asthma, uncomplicated; I10 Essential (primary) hypertension; Z79.82 Long term (current) use of aspirin; Z79.899 Other long term (current) drug therapy
CPT/HCPCS: 10060; 70360; 80048; 85025; 86403; 87070; 87186; 96365; 96366; 96375; 96376; 99284; J2270; J2405

== ENCOUNTER 2017-03-09 08:43 | Emergency (ER) | payer MEDICAID ==
[~2017-03-09 08:43] MED LIST changes: -ALBU6.7H INH; +CLIN300C5 PO; -HYDR-3801 PO; +MUPI2OIN TOPICAL; -NIFE1TAB PO; +PERC5TAB12 PO
[2017-03-09 08:48] VITALS: BP 189/93; PULSE 105; RESP 14; TEMP 97.9; O2SAT 98
--- NOTE | 2017-03-09 09:21 | PD ---
HPI . Abscess recheck Chief Complaint: Wound/Suture/Staple Re-Check Time Seen by Provider: 08:52 Travel History International Travel<30 days: No Contact w/Intl Traveler<30days: No Traveled to known affect area: No History of Present Illness HPI 52-year-old female patient presents emergency department for evaluation of abscess that was drained at our facility 2 days ago and packed. The packing was removed. The abscess appears to be healing appropriately. The patient has been taking her antibiotics as prescribed. She denies any fevers, chills, malaise. PFSH Past Medical History Asthma: Yes Cardiovascular Problems: Yes Hypertension: Yes Musculoskeletal: Yes (chronic back pain) Respiratory: Yes (ASTHMA) ?: Not : 4 Para: 3 Miscarriage: 1 : 0 Past Surgical History Abdominal Surgery: Yes (LYSIS OF ADHESIONS) Section: Yes (X3) Other Surgery: Yes Social History Alcohol Use: No Tobacco Use: No Substance Use: No Allergies-Medications (Allergen,Severity, Reaction): Coded Allergies: No Known Allergies (Verified Adverse Reaction, Unknown, 03/06/17) Reported Meds & Prescriptions Reported Meds & Active Scripts Active Percocet (Oxycodone-Acetaminophen) 5-325 mg Tab 1 Tab PO Q4H PRN Clindamycin (Clindamycin HCl) 300 Mg Cap 300 Mg PO TID 10 Days Mupirocin Topical (Mupirocin) 2 % Oint 1 Applic TOPICAL BID Labetalol (Labetalol HCl) 200 Mg Tab 200 Mg PO Q12HR Hydrochlorothiazide 25 Mg Tab 25 Mg PO DAILY Lisinopril 40 Mg Tab 40 Mg PO DAILY Reported Aspirin 81 Mg Chew 81 Mg CHEW DAILY Review of Systems Except as stated in HPI: all other systems reviewed are Neg Physical Exam Narrative GENERAL: Well-nourished, well-developed 52 year old female patient in no acute distress. Nontoxic appearing. SKIN: 1cm draining abscess to the right lateral aspect of neck. HEAD: Normocephalic. Atraumatic. EYES: No scleral icterus. No injection or drainage. NECK: Supple, trachea midline. No JVD or lymphadenopathy. CARDIOVASCULAR: Regular rate and rhythm without murmurs, gallops, or rubs. RESPIRATORY: Breath sounds equal bilaterally. No accessory muscle use. GASTROINTESTINAL: Abdomen soft, non-tender, nondistended. MUSCULOSKELETAL: No cyanosis, or edema. Data Data Last Documented VS Vital Signs Date Time Temp Pulse Resp B/P (MAP) Pulse Ox O2 Delivery O2 Flow Rate FiO2 03/09/17 08:48 97.9 105 14 189/93 (125) 98 Orders Orders Ed Discharge Order (03/09/17 09:21) MDM Medical Decision Making Medical Screen Exam Complete: Yes Emergency Medical Condition: Yes Differential Diagnosis Differential diagnosis include but not limited to abscess, cellulitis, wound recheck Narrative Course 52 year old female patient presents emergency department for abscess recheck. Packing was removed and abscess was evaluated. Wound appears to be healing appropriately. Patient is taking her antibiotic as prescribed. The abscess was repacked and sterile dressing applied. Patient instructed return to emergency department in 2 days for wound recheck. Patient discharged home with instructions to continue her antibiotic regimen. Diagnosis Primary Impression: Encounter for wound re-check Referrals: Primary Care Physician Patient Instructions: Acute Wound Care (GEN), General Instructions Additional Instructions: Please return to emergency department if your symptoms return or worsen. Return to the emergency department in 2 days to have packing removed Continue to take antibiotics as prescribed. Warm moist compresses to the area will help facilitate draining. Disposition: 01 DISCHARGE HOME Condition: Stable Radha Griffith LINETTE Mar 09, 2017 09:21
== END 2017-03-09 09:43 | disposition home or self-care (01) ==
LOC: NEPK 08:43
DX: L02.11 Cutaneous abscess of neck (principal)
CPT/HCPCS: 99281

== ENCOUNTER 2017-03-12 12:24 | Emergency (ER) | payer MEDICAID ==
[~2017-03-12] VITALS: Ht 157.5 cm; Wt 122.0 kg
[2017-03-12 12:27] VITALS: BP 164/95; PULSE 120; RESP 22; TEMP 97.6; O2SAT 98
--- NOTE | 2017-03-12 13:41 | PD ---
HPI Chief Complaint: Skin Problem Time Seen by Provider: 13:31 Travel History International Travel<30 days: No Contact w/Intl Traveler<30days: No Traveled to known affect area: No History of Present Illness HPI 52-year-old female is here for wound check. Patient status post I&D of right neck abscess. Patient has been taking antibiotics as directed. Patient denies other problem. PFSH Past Medical History Asthma: Yes Cardiovascular Problems: Yes Diminished Hearing: No Hypertension: Yes Musculoskeletal: Yes (chronic back pain) Respiratory: Yes (ASTHMA) ?: Not : 4 Para: 3 Miscarriage: 1 : 0 Past Surgical History Abdominal Surgery: Yes (LYSIS OF ADHESIONS) Section: Yes (X3) Gynecologic Surgery: Yes (C-C[facility]re[facility]) Other Surgery: Yes Social History Alcohol Use: No Tobacco Use: No Substance Use: No Allergies-Medications (Allergen,Severity, Reaction): Coded Allergies: No Known Allergies (Verified Adverse Reaction, Unknown, 03/12/17) Reported Meds & Prescriptions Reported Meds & Active Scripts Active Percocet (Oxycodone-Acetaminophen) 5-325 mg Tab 1 Tab PO Q4H PRN Clindamycin (Clindamycin HCl) 300 Mg Cap 300 Mg PO TID 10 Days Mupirocin Topical (Mupirocin) 2 % Oint 1 Applic TOPICAL BID Labetalol (Labetalol HCl) 200 Mg Tab 200 Mg PO Q12HR Hydrochlorothiazide 25 Mg Tab 25 Mg PO DAILY Lisinopril 40 Mg Tab 40 Mg PO DAILY Reported Aspirin 81 Mg Chew 81 Mg CHEW DAILY Review of Systems General / Constitutional: No: Fever Eyes: No: Visual changes HENT: No: Headaches Cardiovascular: No: Chest Pain or Discomfort Respiratory: No: Shortness of Breath Gastrointestinal: No: Abdominal Pain Genitourinary: No: Dysuria Musculoskeletal: No: Pain Skin: No Rash Neurologic: No: Weakness Psychiatric: No: Depression Endocrine: No: Polydipsia Hematologic/Lymphatic: No: Easy Bruising Physical Exam Narrative GENERAL: Well-nourished, well-developed patient. SKIN: Focused skin assessment warm/dry. HEAD: Normocephalic. EYES: No scleral icterus. No injection or drainage. NECK: Supple, trachea midline. No JVD or lymphadenopathy. CARDIOVASCULAR: Regular rate and rhythm without murmurs, gallops, or rubs. RESPIRATORY: Breath sounds equal bilaterally. No accessory muscle use. GASTROINTESTINAL: Abdomen soft, non-tender, nondistended. MUSCULOSKELETAL: No cyanosis, or edema. BACK: Nontender without obvious deformity. No CVA tenderness. Neurologic exam normal. The wound it clean and dry. No drainage. Packing in place. Packing was removed. Data Data Last Documented VS Vital Signs Date Time Temp Pulse Resp B/P (MAP) Pulse Ox O2 Delivery O2 Flow Rate FiO2 03/12/17 12:27 97.6 120 22 164/95 (118) 98 Orders Orders Ed Discharge Order (03/12/17 13:35) MDM Medical Decision Making Medical Screen Exam Complete: Yes Emergency Medical Condition: Yes Differential Diagnosis Differential diagnosis including wound check. Narrative Course 52-year-old female is here for wound check. Packing was removed. Band-Aid applied. Diagnosis Primary Impression: Visit for wound check Patient Instructions: General Instructions Additional Instructions: Wound care daily. Continue antibiotic. Follow-up with personal physician. Return as needed. Med/Other Pt SpecificInfo: No Change to Meds Disposition: 01 DISCHARGE HOME Condition: Stable Destin Ferrera MD Mar 12, 2017 13:41
== END 2017-03-12 13:53 | disposition home or self-care (01) ==
LOC: NEPD 12:24
DX: L02.11 Cutaneous abscess of neck (principal); J45.909 Unspecified asthma, uncomplicated; I10 Essential (primary) hypertension; Z51.89 Encounter for other specified aftercare; Z79.82 Long term (current) use of aspirin; Z79.899 Other long term (current) drug therapy
CPT/HCPCS: 99281